=== PATIENT | female | born 1975 | race Caucasian/White ===

== ENCOUNTER → 2017-05-01 | Outpatient (CLI) | payer BC | END | disposition home or self-care (01) | LOC: C.LABBFT 10:11 | PROVIDERS: ATTEND Nurse Practitioner | DX: R53.83 Other fatigue (principal) ==

== ENCOUNTER → 2018-03-04 | Outpatient (CLI) | payer BC | END | disposition home or self-care (01) | LOC: C.PAPS 13:59 | PROVIDERS: ATTEND Nurse Practitioner | DX: Z01.419 Encounter for gynecological examination (general) (routine) without abnormal findings (principal) ==

== ENCOUNTER → 2018-03-05 | Outpatient (CLI) | payer BC ==
[2018-03-05 13:01] LABS: BLOOD UREA NITROGEN 8 mg/dl (7-18); CALCIUM 8.7 mg/dl (8.5-10.1); CARBON DIOXIDE 25 mmol/L (21-32); CHOLESTEROL 129 mg/dl (0-200); CREATININE 0.63 mg/dl (0.60-1.20); GLUCOSE 89 mg/dl (70-99); POTASSIUM 3.8 mmol/L (3.5-5.1); SODIUM 138 mmol/L (136-145)
[2018-03-05 13:04] LABS: LDL CHOLESTEROL CALCULATED 65 mg/dl
== END | disposition home or self-care (01) ==
LOC: C.LABBFT 07:22
PROVIDERS: ATTEND Nurse Practitioner
DX: Z01.419 Encounter for gynecological examination (general) (routine) without abnormal findings (principal)

== ENCOUNTER → 2018-03-12 | Outpatient (CLI) | payer BC ==
--- NOTE | 2018-03-12 07:35 | DIAGNOSTIC IMAGING REPORT ---
THYROID ULTRASOUND HISTORY: R68.89 Throat fullness [id number] COMPARISON: None. FINDINGS: Right lobe: 6.3 x 2.0 x 1.7 cm. A few scattered subcentimeter hypoechoic nodules. The largest in the lower pole measures 9 mm. Left lobe: 5.4 x 2.4 x 1.8 cm. Dominant solid nodule within the lower pole measuring 2.4 x 2.3 x 1.6 cm. There are few additional smaller scattered nodules. Isthmus: 5 mm in thickness. No nodules. IMPRESSION: Multinodular thyroid gland. Dominant nodule within the left lower pole measures 2.4 cm. Ultrasound-guided fine-needle aspiration of this nodule is recommended. Electronically signed by: Booker Healy M.D. 03/12/2018 7:34 AM Dictated Date/Time: 03/12/2018 7:32 AM
== END | disposition home or self-care (01) ==
LOC: C.ULTR 06:32
PROVIDERS: ATTEND Nurse Practitioner
DX: R68.89 Other general symptoms and signs (principal)

== ENCOUNTER → 2018-03-24 | Outpatient (CLI) | payer BC ==
--- NOTE | 2018-03-24 14:13 | DIAGNOSTIC IMAGING REPORT ---
ULTRASOUND-GUIDED FINE-NEEDLE ASPIRATION THYROID CLINICAL HISTORY: 2.4 cm lower pole left thyroid nodule. COMPARISON STUDY: Thyroid ultrasound 03/12/2018. PROCEDURE: The risks, benefits, and alternatives to the procedure were discussed with the patient. Written informed consent was obtained. The patient was placed supine in ultrasound, and the 2.4 cm nodule in the left lobe of the thyroid was localized by ultrasound and selected for fine needle aspiration. The left neck was prepped and draped in the usual sterile fashion. The nodule was aspirated under ultrasound guidance with 4 passes utilizing 25-gauge needles. Specimens were reviewed by the pathologist in real-time and deemed adequate for diagnosis. The patient tolerated the procedure well and left the department in satisfactory condition. IMPRESSION: Completed fine-needle aspiration of a left lower pole thyroid nodule as above. The above report was generated using voice recognition software. It may contain grammatical, syntax or spelling errors. Electronically signed by: Dayne Riley M.D. 03/24/2018 2:12 PM Dictated Date/Time: 03/24/2018 2:10 PM
== END | disposition home or self-care (01) ==
LOC: C.ULTR 12:38
PROVIDERS: ATTEND Nurse Practitioner
DX: E04.2 Nontoxic multinodular goiter (principal)

== ENCOUNTER → 2018-07-04 | Outpatient (CLI) | payer BC | END | disposition home or self-care (01) | LOC: C.RDSM 11:20 | PROVIDERS: ATTEND Orthopaedic Surgery | DX: M25.562 Pain in left knee (principal) ==

== ENCOUNTER 2022-07-08 12:29 | Inpatient (IN) ==
[2022-07-08 13:02] LABS: Hematocrit (blood only) 45.4 % (34.1-44.9); Hemoglobin 15.4 g/dl (12.0-16.0); Mean Corpuscular Hemoglobin 30.3 pg (25.0-34.0); Mean Corpuscular Hgb Conc 33.9 g/dL (32.0-36.0); Mean Corpuscular Volume 89.4 fL (80.0-100.0); Mean Platelet Volume 10.2 fL (9.4-12.3); Platelet Count 253 K/uL (130-400); RDW Coefficient of Variation 13.1 % (11.5-14.5); RDW Standard Deviation 42.9 fL (36.4-46.3); Red Blood Count 5.08 M/uL (3.93-5.22); White Blood Count 17.54 K/ul (4.8-10.8)
[2022-07-08 13:23] LABS: Basophils # (auto) 0.03 K/uL (0-0.2); Basophils % (auto) 0.2 %; Eosinophils # (auto) 0.01 K/uL (0-0.50); Eosinophils % (auto) 0.1 %; Immature Granulocytes # (auto) 0.08 K/uL (0.00-0.02); Immature Granulocytes % (auto) 0.5 %; Lymphocytes # (auto) 0.71 K/uL (1.2-3.4); Monocytes # (auto) 0.73 K/uL (0.24-0.82); Monocytes % (auto) 4.2 %; Neutrophils # (auto) 15.98 K/uL (1.4-6.5)
[2022-07-08 13:25] LABS: Albumin Globulin Ratio 1.3 (0.9-2); Albumin Level 4.3 gm/dl (3.4-5.0); Bilirubin,Total 1.3 mg/dl (0.2-1.0); Calcium 9.7 mg/dl (8.5-10.1); Creatinine Clr Calc Pharmacy 119.7 ml/min; Est GFR (African American) 115.3 ml/min; Est GFR (Non-African American) 99.5 ml/min; Globulin 3.3 gm/dl (2.5-4.0); Potassium 3.6 mmol/L (3.5-5.1); Total Protein 7.6 gm/dl (6.0-8.3)
[2022-07-08] MEDS ORDERED: OPTIRAY 300 100mL IV ONE (13:46)
--- NOTE | 2022-07-08 14:22 | CT Scan Report ---
ABDOMEN AND PELVIS CT WITH IV CONTRAST CT DOSE: 1057.59 mGy.cm HISTORY: right sided abd pain TECHNIQUE: Multiaxial CT images of the abdomen and pelvis were performed following the use of intrave nous contrast. A dose lowering technique was utilized adhering to the principles of ALARA. COMPARISON STUDY: Abdominal ultrasound 02/23/2022. Abdomen and pelvis CT 04/09/2008. FINDINGS: Bibasilar subsegmental atelectasis. No pneumoperitoneum. No pneumatosis no fractures within the visualized osseous structures. The liver, spleen, adrenal glands, pancreas, and kidneys are unre markable. No hydronephrosis. The bladder is unremarkable. The uterus and bilateral adnexa are unremar kable. Trace fluid within the right lower quadrant with inflammatory change within the right lower qu adrant. Fluid-filled large and small bowel is noted. Mild thickening at the terminal ileum. There is inflammatory change surrounding the appendix which is slightly thickened at 8 mm. Trace fluid adjacen t to the appendix. The wall appears to be enhancing. This could represent acute appendicitis with cornell ctive thickening of the cecal base and terminal ileum. A terminal ileitis/ileocolitis with reactive c hange within the appendix could also have a similar appearance. IMPRESSION: 1. Inflammatory change centered within the right lower quadrant with a mild wall thickening of the ap pendix, cecum, and terminal ileum. The appendix measures up to 8 mm in diameter which is considered a bnormal by CT. Therefore, this favors an acute appendicitis with reactive thickening of the cecal bas e and terminal ileum. A terminal ileitis/ileocolitis with reactive change within the appendix could a lso have a similar appearance. 2. Fluid-filled nondilated large and small bowel. This could represent a reactive ileus or gastroente ritis. 3. Prior cholecystectomy. ACT 112: Negative or not required by law. Electronically signed by: Booker Healy M.D. 07/08/2022 2:20 PM
[2022-07-08] MEDS ORDERED: MoRPHine SULFATE 4 MG/ML 1 ML CARP\\VIAL IV STA (14:23)
[2022-07-08] MEDS ORDERED: ONDANSETRON INJ 2 MG/ML 2 ML VIAL IV STA (14:23)
[2022-07-08] MEDS ORDERED: MoRPHine SULFATE 4 MG/ML 1 ML CARP\\VIAL IV PRN ×2 (14:23→18:18)
[2022-07-08] MEDS ORDERED: SODIUM CHLORIDE 0.9% 1000ML 1,000 ML IV ONE (14:23)
[2022-07-08 14:28] LABS: Appearance Urine Clear (Clear); Bacteria Urine Automated Negative (Negative); Bilirubin Urine Negative (Negative); Blood Urine Trace (Negative); Color Urine Yellow; Epithelial Cell Urine Auto 20-30 /lpf (0-5); Glucose Urine UA Negative (Negative); Ketones Urine Negative (Negative); Leukocyte Esterase Urine Negative (Negative); Nitrite Urine Negative (Negative); Protein Urine Trace (Negative); RBC Urine Automated 0-4 /hpf (0-4); Specific Gravity Urine 1.016 (1.000-1.030); Urobilinogen Urine Negative (Negative); pH Urine 6.5 (4.5-7.5)
--- NOTE | 2022-07-08 14:33 | Emergency Department Note ---
Impression & Plan Acute appendicitis, Right lower quadrant abdominal pain ED Provider Note NAME: MAXWELL DIAZ AGE: 46 SEX: F : 1975 ARRIVES VIA: Walk-In INFORMANT: Patient, ED PROVIDER(S): Anupam Reyes DO CHIEF COMPLAINT: Abdominal pain HPI: The patient is a 46-year-old female who presented to the emergency department for an evaluation of abdominal pain. The patient started noticing lower abdominal pain over the course the last few days. She states that the pain was associated with nausea as well as vomiting. She has had some loose bowel movements. She denies having any black or bloody bowels. She has had no similar symptoms in the past. She states that she has had a difficult time trying to eat or drink because of the pain. She states the pain is worsened with ambulation as well as palpation of the lower abdomen. The patient states that her pain is moderate to severe. She was not able to see a provider prior t o coming to the emergency department. The patient states she tried taking [id number] medication without relief. ROS: See above HPI for pertinent positives & negatives. A total of 10 systems reviewed and were otherwise negative. PAST MEDICAL HISTORY: See Below PAST SURGICAL HISTORY: See Below FAMILY HISTORY: See Below SOCIAL HISTORY: See Below HOME MEDICATIONS: See Below ALLERGIES: See Below VITALS: See Below PHYSICAL EXAMINATION: GENERAL: The patient is awake and alert. The patient is very anxious appearing and appears to be uncomfortable. EYES: The conjunctivae are clear. The pupils are round and reactive. EARS, NOSE, MOUTH AND THROAT: The nose is without any evidence of any deformity. NECK: The neck is nontender and supple. RESPIRATORY: Normal respiratory effort is noted there is no evidence of wheezing rhonchi or rales CARDIOVASCULAR: Regular rate and rhythm noted there no murmurs rubs or gallops normal S1 normal S2. GASTROINTESTINAL: The abdomen is soft and mildly distended. There is guarding in the right middle quadrant. MUSCULOSKELETAL/EXTREMITIES: There is no evidence of gross deformity full range of motion is noted in the hips and shoulders. SKIN: There is no obvious evidence of any rash. There are no petechiae, pallor or cyanosis noted. NEUROLOGIC: Patient is awake alert and oriented x3. Gait was steady. MEDICAL DECISION MAKING: Patient is a 46-year-old female who presented to the emergency department for an evaluation of lower abdominal pain. The patient was treated with IV fluids and IV pain medication in the emergency department. She was also ordered IV Zosyn. I discussed the patient's laboratory and radiographic studies with her. She was found to have signs of appendicitis on CT but this could also be a terminal ileitis or some other involvement of the proximal large bowel. This appears to involve her cecum as well. Because of her findings I discussed her condition with the on-call general surgeon. They reviewed her radiographic studies and after evaluating the patient feels she may be a better candidate for IV antibiotics at this time until her condition starts to become more clear. She does not appear to have any signs of perforation. The patient did have an elevated white blood cell count. I do agree with this plan at this time and the patient was agreeable as well. Triage Nursing notes reviewed. Prior medical records reviewed Vital Signs: reviewed and remarkable for no significant abnormalities Differential diagnosis: Etiologies such as appendicitis, diverticulitis, obstruction, inflammatory bowel disease, renal colic, PUD, biliary pathology, pancreatitis, mesenteric ischemia, aortic pathology, infections, genitourinary, UTI, perforated viscus, as well as others were entertained. ER treatment provided: See below Diagnostics interpreted by me: ECG: none Cardiac Monitoring: An order was placed for continuous cardiac monitoring. The monitor shows a rate of 95 bpm with sinus rhythm. Laboratory studies: As stated above and show below. Imaging studies: See below Consultation(s): I discussed this case with Dr. Grace who is on-call for general surgery. Past Med/Surg History Medical History Amenorrhea Depression HX GERD (gastroesophageal reflux disease) UNDER CONTROL Migraines Obesity Palpitations ON OCC-NO CARDIOLOGY Thyroid nodule UNDER OBSERVATION/HAS HAD BIOPSY-BENIGN Per 03/02/21 thyroid u/s- no significant change in several of the thyroid nodules since 2018 Tobacco abuse Quit April 2017, but has an occasional cigarette Surgical History History of esophagogastroduodenoscopy (EGD) History of oophorectomy 2007 for complex cyst History of surgery on lower extremity S/P FOREIGN BODY REMOVAL Hx laparoscopic cholecystectomy (03/28/22) Robotic Laparoscopic Cholecystectomy (Not Applicable) - Da Munoz DO, FACS Family History Family/Other Diabetes PATERNAL GRANDFATHER Dementia Grandfather (Maternal) Dementia Migraine headache Parkinsons disease Father Heart murmur Mother Migraine headache Grandmother (Maternal) Ovarian cancer Other Myocardial infarction Denies family history of Breast cancer Colorectal cancer Social History Smoking Status: Current every day smoker Tobacco Type: Cigarettes Age Started Using Tobacco: 19; Years Smoked: 20; Cigarettes Per Day: LESS THAN 3 A DAY; Second Hand Exposure: No; Hx Alcohol Use: No Hx Substance Use: No Preferred Language: Frisian Communication Ability: Effective Visual Impairment: No Limitations Hearing Ability: Normal Acoustic Warfare Analyst Required: No Beliefs That Will Affect Care: None marital status: single Current Living Situation: Alone current occupational status: employed current occupation: [employer] How many Children do You have: 0 Feels Safe at Home: Yes Childhood Exposure to Second-Hand Smoke: No caffeine: Yes during the past year weight has: decreased > 10 lbs Dental Care, Regularly: Yes Physical Activity Frequency: 1-2 Times per Week Seatbelt Use: always Sunscreen Use: Yes Assistive Devices: Glasses Allergies Allergies Allergy/AdvReac Type Severity Reaction Status Date / Time No Known Drug Allergies Allergy Unknown Verified 07/08/22 16:44 SEASONAL Allergy ITCHY, DRY Uncoded 07/08/22 16:54 & RED EYES Home Meds Home Medications Medication Instructions Recorded Confirmed magnesium 200 mg tablet 200 mg PO QAM 01/26/20 07/08/22 omeprazole magnesium 20 mg 20 mg PO QAM 01/26/20 07/08/22 tablet,delayed release loratadine 10 mg tablet 10 mg PO QAM 02/28/21 07/08/22 psyllium husk 0.52 gram capsule 1.04 g PO QAM 03/01/22 07/08/22 Collagen Powder 1 dose PO DAILY 07/08/22 07/08/22 acetaminophen 500 mg tablet 1,000 mg PO Q6H PRN Pain 07/08/22 07/08/22 (Tylenol Extra Strength) glucosamine sulf dipot 2 cap PO DAILY 07/08/22 07/08/22 chlr,msm,chond 550 mg-C 30 mg-chirag 1 mg capsule (Glucosamine Chondroitin) Previous Rx's Medication Instructions Recorded rizatriptan 10 mg disintegrating See Rx Instructions PO .COMPLEX #9 03/01/22 tablet tabs Results & Data (ED) Vital Signs Vital Signs - 24 hr 07/08/22 12:34 07/08/22 15:28 07/08/22 15:34 Temperature 36.5 C Temperature Source Temporal Artery Scan Pulse Rate 104 H 96 H Pulse Rate [Apical] 99 H Pulse Rate from SpO2 Sensor 97 H Respiratory Rate 20 16 22 Respiratory Effort / Characteristics Non-Labored Respiratory Depth Normal Blood Pressure 149/95 H Blood Pressure [Left Arm] 134/80 Blood Pressure Mean 113 Blood Pressure Mean [Left Arm] 98 Pulse Oximetry 98 96 96 Oxygen Delivery Method Room Air Room Air Sepsis Recent Fever Within 48 Hours No Sepsis New/Unexplained Change in Mental Status N/A Sepsis Action Taken by Nursing No Action Required Home Medications Current Medication List: was personally reviewed by me Laboratory Data Attestation: I reviewed the patient's lab results. Result diagrams: 07/08/22 10:25 07/08/22 10:25 Lab Results 07/08/22 07/08/22 07/08/22 Range/Units 10:25 10:25 14:00 WBC 17.54 H (4.8-10.8) K/ul RBC 5.08 (3.93-5.22) M/uL Hgb 15.4 (12.0-16.0) g/dl Hct 45.4 H (34.1-44.9) % MCV 89.4 (80.0-100.0) fL MCH 30.3 (25.0-34.0) pg MCHC 33.9 (32.0-36.0) g/dL RDW Std Deviation 42.9 (36.4-46.3) fL RDW Coeff of Amy 13.1 (11.5-14.5) % Plt Count 253 (130-400) K/uL MPV 10.2 (9.4-12.3) fL Immature Gran % (Auto) 0.5 % Neut % (Auto) 91.0 % Lymph % (Auto) 4.0 % Stanton % (Auto) 4.2 % Eos % (Auto) 0.1 % Baso % (Auto) 0.2 % Neut # (Auto) 15.98 H (1.4-6.5) K/uL Lymph # (Auto) 0.71 L (1.2-3.4) K/uL Stanton # (Auto) 0.73 (0.24-0.82) K/uL Eos # (Auto) 0.01 (0-0.50) K/uL Baso # (Auto) 0.03 (0-0.2) K/uL Immature Gran # (Auto) 0.08 H (0.00-0.02) K/uL Sodium 133 L (136-145) mmol/L Potassium 3.6 (3.5-5.1) mmol/L Chloride 98 (98-107) mmol/L Carbon Dioxide 26 (21-32) mmol/L Anion Gap 9 (3-11) BUN 8 (6-23) mg/dl Creatinine 0.73 (0.6-1.2) mg/dl Est Cr Clr Drug Dosing 119.7 ml/min Est GFR ( Amer) 115.3 ml/min Est GFR (Non-Af Amer) 99.5 ml/min BUN/Creatinine Ratio 11.0 (10-20) Glucose 121 H (70-99(Fasting)) mg/dl Calcium 9.7 (8.5-10.1) mg/dl Total Bilirubin 1.3 H (0.2-1.0) mg/dl AST 9 L (13-39) U/L ALT 9 (7-52) U/L Alkaline Phosphatase 79 (34-104) U/L Total Protein 7.6 (6.0-8.3) gm/dl Albumin 4.3 (3.4-5.0) gm/dl Globulin 3.3 (2.5-4.0) gm/dl Albumin/Globulin Ratio 1.3 (0.9-2) Lipase 8 L (11-82) U/L HCG, Qual (Negative) Urine Color Yellow Urine Appearance Clear (Clear) Urine pH 6.5 (4.5-7.5) Ur Specific [place] 1.016 (1.000-1.030) Urine Protein Trace H (Negative) Urine Glucose (UA) Negative (Negative) Urine Ketones Negative (Negative) Urine Blood Trace H (Negative) Urine Nitrite Negative (Negative) Urine Bilirubin Negative (Negative) Urine Urobilinogen Negative (Negative) Ur Leukocyte Esterase Negative (Negative) Urine WBC (Auto) 1-5 (0-5) /hpf Urine RBC (Auto) 0-4 (0-4) /hpf U Hyaline Cast (Auto) 1-5 (0-5) /lpf U Epithel Cells (Auto) 20-30 H (0-5) /lpf Urine Bacteria (Auto) Negative (Negative) 07/08/22 Range/Units 14:53 WBC (4.8-10.8) K/ul RBC (3.93-5.22) M/uL Hgb (12.0-16.0) g/dl Hct (34.1-44.9) % MCV (80.0-100.0) fL MCH (25.0-34.0) pg MCHC (32.0-36.0) g/dL RDW Std Deviation (36.4-46.3) fL RDW Coeff of Amy (11.5-14.5) % Plt Count (130-400) K/uL MPV (9.4-12.3) fL Immature Gran % (Auto) % Neut % (Auto) % Lymph % (Auto) % Stanton % (Auto) % Eos % (Auto) % Baso % (Auto) % Neut # (Auto) (1.4-6.5) K/uL Lymph # (Auto) (1.2-3.4) K/uL Stanton # (Auto) (0.24-0.82) K/uL Eos # (Auto) (0-0.50) K/uL Baso # (Auto) (0-0.2) K/uL Immature Gran # (Auto) (0.00-0.02) K/uL Sodium (136-145) mmol/L Potassium (3.5-5.1) mmol/L Chloride (98-107) mmol/L Carbon Dioxide (21-32) mmol/L Anion Gap (3-11) BUN (6-23) mg/dl Creatinine (0.6-1.2) mg/dl Est Cr Clr Drug Dosing ml/min Est GFR ( Amer) ml/min Est GFR (Non-Af Amer) ml/min BUN/Creatinine Ratio (10-20) Glucose (70-99(Fasting)) mg/dl Calcium (8.5-10.1) mg/dl Total Bilirubin (0.2-1.0) mg/dl AST (13-39) U/L ALT (7-52) U/L Alkaline Phosphatase (34-104) U/L Total Protein (6.0-8.3) gm/dl Albumin (3.4-5.0) gm/dl Globulin (2.5-4.0) gm/dl Albumin/Globulin Ratio (0.9-2) Lipase (11-82) U/L HCG, Qual Negative (Negative) Urine Color Urine Appearance (Clear) Urine pH (4.5-7.5) Ur Specific [place] (1.000-1.030) Urine Protein (Negative) Urine Glucose (UA) (Negative) Urine Ketones (Negative) Urine Blood (Negative) Urine Nitrite (Negative) Urine Bilirubin (Negative) Urine Urobilinogen (Negative) Ur Leukocyte Esterase (Negative) Urine WBC (Auto) (0-5) /hpf Urine RBC (Auto) (0-4) /hpf U Hyaline Cast (Auto) (0-5) /lpf U Epithel Cells (Auto) (0-5) /lpf Urine Bacteria (Auto) (Negative) Administered Medications Piperacillin Sod/Tazobactam (Sod 4.5 gm/ Dextrose) 120 mls @ 28.75 mls/hr IV Q8H [facility]; Protocol Stop: 07/18/22 19:59 Last Admin: 07/08/22 19:35 Dose: 28.8 mls/hr Documented By: ERLIN Discontinued Medications Sodium Chloride (Nss 1000ml) 1,000 mls @ 999 mls/hr IV .Q1H1M ONE Stop: 07/08/22 15:23 Last Infusion: 07/08/22 16:24 Dose: 0 mls/hr Documented By: Admin: 07/08/22 15:23 Dose: 999 mls/hr Documented By: REYNA Piperacillin Sod/Tazobactam Sod (Zosyn) 4.5 gm in 120 mls @ 240 mls/hr IV NOW ONE Stop: 07/08/22 16:23 Last Infusion: 07/08/22 16:47 Dose: 0 mls/hr Documented By: Admin: 07/08/22 16:17 Dose: 240 mls/hr Documented By: REYNA Ioversol (Optiray 300 100ml) 94 ml IV ONCE ONE Stop: 07/08/22 13:47 Last Admin: 07/08/22 13:46 Dose: 94 ml Documented By: JANNA Morphine Sulfate (Morphine Sulfate 4 Mg/Ml 1 Ml Carp\Vial) 4 mg IV NOW STA Stop: 07/08/22 14:24 Last Admin: 07/08/22 19:31 Dose: 4 mg Documented By: ERLIN Ondansetron HCl (Ondansetron Inj 2 Mg/Ml 2 Ml Vial) 4 mg IV NOW STA Stop: 07/08/22 14:24 Last Admin: 07/08/22 19:29 Dose: 4 mg Documented By: ERLIN Imaging Data Radiologist's Impression: Abdomen/Pelvis CT 07/08/22 13:[address] WITH IV CONTRAST CT DOSE: 1057.59 mGy.cm HISTORY: right sided abd pain TECHNIQUE: Multiaxial CT images of the abdomen and pelvis were performed following the use of intravenous contrast. A dose lowering technique was utilized adhering to the principles of ALARA. COMPARISON STUDY: Abdominal ultrasound 02/23/2022. Abdomen and pelvis CT 04/09/2008. FINDINGS: Bibasilar subsegmental atelectasis. No pneumoperitoneum. No pneumatosis no fractures within the visualized osseous structures. The liver, spleen, adrenal glands, pancreas, and kidneys are unremarkable. No hydronephrosis. The bladder is unremarkable. The uterus and bilateral adnexa are unremarkable. Trace fluid within the right lower quadrant with inflammatory change within the right lower quadrant. Fluid-filled large and small bowel is noted. Mild thickening at the terminal ileum. There is inflammatory change surrounding the appendix which is slightly thickened at 8 mm. Trace fluid adjacent to the appendix. The wall appears to be enhancing. This could represent acute appendicitis with reactive thickening of the cecal base and terminal ileum. A terminal ileitis/ileocolitis with reactive change within the appendix could also have a similar appearance. IMPRESSION: 1. Inflammatory change centered within the right lower quadrant with a mild wall thickening of the appendix, cecum, and terminal ileum. The appendix measures up to 8 mm in diameter which is considered abnormal by CT. Therefore, this favors an acute appendicitis with reactive thickening of the cecal base and terminal ileum. A terminal ileitis/ileocolitis with reactive change within the appendix could also have a similar appearance. 2. Fluid-filled nondilated large and small bowel. This could represent a reactive ileus or gastroenteritis. 3. Prior cholecystectomy. ACT 112: Negative or not required by law. Electronically signed by: Booker Healy M.D. 07/08/2022 2:20 PM Discharge Plan Visit Data Chief Complaint: Abdominal Pain Stated Complaint: ABDOMINAL PAIN ED Provider: Anupam Reyes Discharge Problem: Acute appendicitis, Right lower quadrant abdominal pain Patient Disposition: Admitted As Inpatient Discharge Instructions Interventions: ED Discharge Assessment Last Done: 07/08/22 19:00 : Acute appendicitis Qualifiers: Acute appendicitis type: with localized peritonitis Appendicitis gangrene presence: without gangrene Appendicitis perforation presence: without perforation Appendicitis abscess presence: without abscess Qualified Code(s): K35.30 - Acute appendicitis with localized peritonitis, without perforation or gangrene
[2022-07-08 15:39] LABS: Pregnancy Test, Serum Negative (Negative)
--- NOTE | 2022-07-08 15:42 | History & Physical Report ---
Date of Service July 08, 2022 Assessment & Plan (1) Right lower quadrant abdominal pain: Plan: Imaging was personally reviewed with the patient. There are significant inflammatory changes involving the terminal ileum, appendix, and base of cecum. It is unclear if this is appendicitis extending to these areas or if this is ileitis extending to involve the appendix. There is no evidence for perforation. Given the phlegmonous changes on CT scan, I am worried that she will not be a simple appendectomy. It is far more likely that she would require an ileocecectomy at this point. There is no evidence for an appendicolith on CT scan. We discussed that there is data showing the treatment of both ileitis as well as appendicitis with antibiotics can be successful. Thus, I would like to admit her for bowel rest and IV antibiotics. If her symptoms do not improve, she may still require surgery which may either be an appendectomy or an ileocecectomy. We did discuss the difference between both procedures as well as the difference in recovery if the procedure can be done laparoscopically versus an open procedure. Currently, all of her questions were answered. She is in agreement with this plan. (2) Ileitis, terminal: Plan: see above. Discussed that if this is ileitis, she will need a GI eval to rule out Crohn's disease as an outpatient. History of Present Illness Chief Complaint: abdominal pain Primary Care Provider: SAMY Pacheco 46-year-old woman who presents to the emergency room complaining of 3 to 4 days of abdominal pain. This began as generalized abdominal pain in the mid abdomen. It subsequently migrated to the right lower quadrant. Yesterday it was associated with nausea and vomiting. It was a moderate to severe intensity. It comes and goes in waves. It does not radiate. She notes chills but did not take her temperature. The pain is worse with movement. She has noted decreased appetite. No relieving factors. She did have a similar episode back in February where she also had periumbilical pain that migrated to the right mid to lower abdomen. At that time she was diagnosed with gallbladder disease and underwent a laparoscopic cholecystectomy. Allergies Allergy/AdvReac Type Severity Reaction Status Date / Time No Known Drug Allergies Allergy Verified 04/13/22 09:25 Home Medications Medication Instructions Recorded Confirmed Type glucosamine HCl 500 mg tablet 500 mg PO QAM 01/26/20 03/28/22 History magnesium 200 mg tablet 200 mg PO QAM 01/26/20 03/28/22 History omeprazole magnesium 20 mg 20 mg PO QAM 01/26/20 03/28/22 History tablet,delayed release loratadine 10 mg tablet 10 mg PO QAM 02/28/21 03/28/22 History ondansetron 4 mg disintegrating 4 mg PO Q8H PRN nausea and 02/23/22 03/28/22 Rx tablet vomiting #30 tabs psyllium husk 0.52 gram capsule 0.52 g PO QAM 03/01/22 03/28/22 History rizatriptan 10 mg disintegrating See Rx Instructions PO .COMPLEX #9 03/01/22 03/28/22 Rx tablet tabs oxycodone-acetaminophen 5 mg-325 1 - 2 tab PO Q4H PRN pain, initial 03/28/22 Rx mg tablet (Percocet) therapy, max 6 daily #15 tabs Past Med/Surg History Medical History Amenorrhea Depression HX GERD (gastroesophageal reflux disease) UNDER CONTROL Migraines Obesity Palpitations ON OCC-NO CARDIOLOGY Thyroid nodule UNDER OBSERVATION/HAS HAD BIOPSY-BENIGN Per 03/02/21 thyroid u/s- no significant change in several of the thyroid nodules since 2018 Tobacco abuse Quit April 2017, but has an occasional cigarette Surgical History History of esophagogastroduodenoscopy (EGD) History of oophorectomy 2007 for complex cyst History of surgery on lower extremity S/P FOREIGN BODY REMOVAL Hx laparoscopic cholecystectomy (03/28/22) Robotic Laparoscopic Cholecystectomy (Not Applicable) - Da Mnuoz DO, FACS Family History Family/Other Diabetes PATERNAL GRANDFATHER Dementia Grandfather (Maternal) Dementia Migraine headache Parkinsons disease Father Heart murmur Mother Migraine headache Grandmother (Maternal) Ovarian cancer Other Myocardial infarction Denies family history of Breast cancer Colorectal cancer Social History Smoking Status: Current every day smoker Tobacco Type: Cigarettes Age Started Using Tobacco: 19; Years Smoked: 20; Cigarettes Per Day: LESS THAN 3 A DAY; Second Hand Exposure: No; Hx Alcohol Use: No Hx Substance Use: No Preferred Language: Italian Communication Ability: Effective Visual Impairment: No Limitations Hearing Ability: Normal Front Desk Receptionist Required: No Beliefs That Will Affect Care: None marital status: single Current Living Situation: Alone current occupational status: employed current occupation: [employer] How many Children do You have: 0 Feels Safe at Home: Yes Childhood Exposure to Second-Hand Smoke: No caffeine: Yes during the past year weight has: decreased > 10 lbs Dental Care, Regularly: Yes Physical Activity Frequency: 1-2 Times per Week Seatbelt Use: always Sunscreen Use: Yes Assistive Devices: Glasses Review of Systems Review of Systems: All systems reviewed & are unremarkable except as noted in HPI & below Physical Exam Constitutional: WD/WN, vitals as above Eyes: PERRL, conjunctivae normal, anicteric sclerae ENMT: Ears: no external ear abnormality Neck: normal visual inspection and trachea midline Respiratory: normal respiratory effort, lungs clear to auscultation Cardiovascular: RRR, no murmur, no edema Gastrointestinal (Abdomen): Inspection/Auscultation: abdomen normal to inspection and normal bowel sounds; abdomen not distended Percussion/Palpation: + abdomen tender (mid and right lower abdomen) and abdomen soft; no guarding and no hernia Musculoskeletal: Extremities: extremities normal to inspection Neurologic: awake; no focal motor deficits Psychiatric: A+Ox3, euthymic affect Results & Data Results & Data ([facility]) Vital Signs (Past 12 Hours) Vital Signs Temp Pulse Pulse Resp BP BP Pulse Ox 07/08/22 15:28 99 H 16 134/80 96 07/08/22 12:34 36.5 C 104 H 20 149/95 H 98 O2 Del Method 07/08/22 15:28 Room Air 07/08/22 12:34 Room Air Laboratory Results 07/08/22 07/08/22 07/08/22 Range/Units 14:53 14:00 10:25 WBC (4.8-10.8) K/ul RBC (3.93-5.22) M/uL Hgb (12.0-16.0) g/dl Hct (34.1-44.9) % MCV (80.0-100.0) fL MCH (25.0-34.0) pg MCHC (32.0-36.0) g/dL RDW Std Deviation (36.4-46.3) fL RDW Coeff of Amy (11.5-14.5) % Plt Count (130-400) K/uL MPV (9.4-12.3) fL Immature Gran % (Auto) % Neut % (Auto) % Lymph % (Auto) % [place] % (Auto) % Eos % (Auto) % Baso % (Auto) % Neut # (Auto) (1.4-6.5) K/uL Lymph # (Auto) (1.2-3.4) K/uL [place] # (Auto) (0.24-0.82) K/uL Eos # (Auto) (0-0.50) K/uL Baso # (Auto) (0-0.2) K/uL Immature Gran # (Auto) (0.00-0.02) K/uL Sodium 133 L (136-145) mmol/L Potassium 3.6 (3.5-5.1) mmol/L Chloride 98 (98-107) mmol/L Carbon Dioxide 26 (21-32) mmol/L Anion Gap 9 (3-11) BUN 8 (6-23) mg/dl Creatinine 0.73 (0.6-1.2) mg/dl Est Cr Clr Drug Dosing 119.7 ml/min Est GFR ( Amer) 115.3 ml/min Est GFR (Non-Af Amer) 99.5 ml/min BUN/Creatinine Ratio 11.0 (10-20) Glucose 121 H (70-99(Fasting)) mg/dl Calcium 9.7 (8.5-10.1) mg/dl Total Bilirubin 1.3 H (0.2-1.0) mg/dl AST 9 L (13-39) U/L ALT 9 (7-52) U/L Alkaline Phosphatase 79 (34-104) U/L Total Protein 7.6 (6.0-8.3) gm/dl Albumin 4.3 (3.4-5.0) gm/dl Globulin 3.3 (2.5-4.0) gm/dl Albumin/Globulin Ratio 1.3 (0.9-2) Lipase 8 L (11-82) U/L HCG, Qual Negative (Negative) Urine Color Yellow Urine Appearance Clear (Clear) Urine pH 6.5 (4.5-7.5) Ur Specific [place] 1.016 (1.000-1.030) Urine Protein Trace H (Negative) Urine Glucose (UA) Negative (Negative) Urine Ketones Negative (Negative) Urine Blood Trace H (Negative) Urine Nitrite Negative (Negative) Urine Bilirubin Negative (Negative) Urine Urobilinogen Negative (Negative) Ur Leukocyte Esterase Negative (Negative) Urine WBC (Auto) 1-5 (0-5) /hpf Urine RBC (Auto) 0-4 (0-4) /hpf U Hyaline Cast (Auto) 1-5 (0-5) /lpf U Epithel Cells (Auto) 20-30 H (0-5) /lpf Urine Bacteria (Auto) Negative (Negative) 07/08/22 Range/Units 10:25 WBC 17.54 H (4.8-10.8) K/ul RBC 5.08 (3.93-5.22) M/uL Hgb 15.4 (12.0-16.0) g/dl Hct 45.4 H (34.1-44.9) % MCV 89.4 (80.0-100.0) fL MCH 30.3 (25.0-34.0) pg MCHC 33.9 (32.0-36.0) g/dL RDW Std Deviation 42.9 (36.4-46.3) fL RDW Coeff of Amy 13.1 (11.5-14.5) % Plt Count 253 (130-400) K/uL MPV 10.2 (9.4-12.3) fL Immature Gran % (Auto) 0.5 % Neut % (Auto) 91.0 % Lymph % (Auto) 4.0 % [place] % (Auto) 4.2 % Eos % (Auto) 0.1 % Baso % (Auto) 0.2 % Neut # (Auto) 15.98 H (1.4-6.5) K/uL Lymph # (Auto) 0.71 L (1.2-3.4) K/uL [place] # (Auto) 0.73 (0.24-0.82) K/uL Eos # (Auto) 0.01 (0-0.50) K/uL Baso # (Auto) 0.03 (0-0.2) K/uL Immature Gran # (Auto) 0.08 H (0.00-0.02) K/uL Sodium (136-145) mmol/L Potassium (3.5-5.1) mmol/L Chloride (98-107) mmol/L Carbon Dioxide (21-32) mmol/L Anion Gap (3-11) BUN (6-23) mg/dl Creatinine (0.6-1.2) mg/dl Est Cr Clr Drug Dosing ml/min Est GFR ( Amer) ml/min Est GFR (Non-Af Amer) ml/min BUN/Creatinine Ratio (10-20) Glucose (70-99(Fasting)) mg/dl Calcium (8.5-10.1) mg/dl Total Bilirubin (0.2-1.0) mg/dl AST (13-39) U/L ALT (7-52) U/L Alkaline Phosphatase (34-104) U/L Total Protein (6.0-8.3) gm/dl Albumin (3.4-5.0) gm/dl Globulin (2.5-4.0) gm/dl Albumin/Globulin Ratio (0.9-2) Lipase (11-82) U/L HCG, Qual (Negative) Urine Color Urine Appearance (Clear) Urine pH (4.5-7.5) Ur Specific [place] (1.000-1.030) Urine Protein (Negative) Urine Glucose (UA) (Negative) Urine Ketones (Negative) Urine Blood (Negative) Urine Nitrite (Negative) Urine Bilirubin (Negative) Urine Urobilinogen (Negative) Ur Leukocyte Esterase (Negative) Urine WBC (Auto) (0-5) /hpf Urine RBC (Auto) (0-4) /hpf U Hyaline Cast (Auto) (0-5) /lpf U Epithel Cells (Auto) (0-5) /lpf Urine Bacteria (Auto) (Negative) Diagnostic Findings CT scan ABDOMEN AND PELVIS CT WITH IV CONTRAST CT DOSE: 1057.59 mGy.cm HISTORY: right sided abd pain TECHNIQUE: Multiaxial CT images of the abdomen and pelvis were performed following the use of intravenous contrast. A dose lowering technique was utilized adhering to the principles of ALARA. COMPARISON STUDY: Abdominal ultrasound 02/23/2022. Abdomen and pelvis CT 04/09/2008. FINDINGS: Bibasilar subsegmental atelectasis. No pneumoperitoneum. No pneumatosis no fractures within the visualized osseous structures. The liver, spleen, adrenal glands, pancreas, and kidneys are unremarkable. No hydronephrosis. The bladder is unremarkable. The uterus and bilateral adnexa are unremarkable. Trace fluid within the right lower quadrant with inflammatory change within the right lower quadrant. Fluid-filled large and small bowel is noted. Mild thickening at the terminal ileum. There is inflammatory change surrounding the appendix which is slightly thickened at 8 mm. Trace fluid adjacent to the appendix. The wall appears to be enhancing. This could represent acute appendicitis with reactive thickening of the cecal base and terminal ileum. A terminal ileitis/ileocolitis with reactive change within the appendix could also have a similar appearance. IMPRESSION: 1. Inflammatory change centered within the right lower quadrant with a mild wall thickening of the appendix, cecum, and terminal ileum. The appendix measures up to 8 mm in diameter which is considered abnormal by CT. Therefore, this favors an acute appendicitis with reactive thickening of the cecal base and terminal ileum. A terminal ileitis/ileocolitis with reactive change within the appendix could also have a similar appearance. 2. Fluid-filled nondilated large and small bowel. This could represent a reactive ileus or gastroenteritis. 3. Prior cholecystectomy. ACT 112: Negative or not required by law.
[2022-07-08] MEDS ORDERED: PIPERACILLIN/TAZOBACTAM 4.5 GM/120 ML BAG IV ONE (15:54)
[2022-07-08] MEDS ORDERED: ONDANSETRON INJ 2 MG/ML 2 ML VIAL IV PRN (18:18)
[2022-07-08] MEDS ORDERED: MoRPHine SULFATE 2 MG/ML CARP IV PRN (18:18)
[2022-07-08] MEDS: PIPERACILLIN/TAZOBACTAM 4.5 GM in DEXTROSE 5% 100 ML IV SCH (19:35)
[2022-07-08] MEDS: LACTATED RINGER'S 1,000 ML IV SCH (23:57)
[2022-07-09] MEDS: PIPERACILLIN/TAZOBACTAM 4.5 GM in DEXTROSE 5% 100 ML IV SCH ×3 (04:27→20:23)
[2022-07-09] MEDS: LACTATED RINGER'S 1,000 ML IV SCH ×3 (08:42→20:22)
[2022-07-09] MEDS: PANTOprazole 40 MG in SYRINGE 0 ML IV SCH (10:18)
[2022-07-09 10:23] LABS: Basophils # (auto) 0.03 K/uL (0-0.2); Basophils % (auto) 0.2 %; Eosinophils # (auto) 0.06 K/uL (0-0.50); Eosinophils % (auto) 0.4 %; Hematocrit (blood only) 39.6 % (34.1-44.9); Hemoglobin 13.5 g/dl (12.0-16.0); Immature Granulocytes # (auto) 0.07 K/uL (0.00-0.02); Immature Granulocytes % (auto) 0.5 %; Lymphocytes % (auto) 6.5 %; Mean Corpuscular Hemoglobin 30.1 pg (25.0-34.0); Mean Corpuscular Hgb Conc 34.1 g/dL (32.0-36.0); Mean Corpuscular Volume 88.4 fL (80.0-100.0); Mean Platelet Volume 10.5 fL (9.4-12.3); Monocytes # (auto) 0.77 K/uL (0.24-0.82); Monocytes % (auto) 5.5 %; Neutrophils # (auto) 12.08 K/uL (1.4-6.5); Neutrophils % (auto) 86.9 %; Platelet Count 224 K/uL (130-400); RDW Coefficient of Variation 13.2 % (11.5-14.5); RDW Standard Deviation 43.3 fL (36.4-46.3); Red Blood Count 4.48 M/uL (3.93-5.22); White Blood Count 13.91 K/ul (4.8-10.8)
[2022-07-09 10:57] LABS: BUN Creatinine Ratio 10.3 (10-20); Calcium 8.9 mg/dl (8.5-10.1); Creatinine Clr Calc Pharmacy 149.9 ml/min; Est GFR (Non-African American) 111.3 ml/min; Potassium 3.6 mmol/L (3.5-5.1)
[2022-07-09] MEDS ORDERED: ACETAMINOPHEN 325 MG TAB PO PRN (15:52)
[2022-07-09] MEDS ORDERED: KETOROLAC TROMETHAMINE 15 MG/ML VIAL IV PRN (15:52)
[2022-07-09] MEDS ORDERED: oxyCODONE/ACETAMINOPHEN 5mg/325mg TAB PO PRN (15:52)
--- NOTE | 2022-07-09 15:58 | Surgery Progress Note ---
Date of Service July 09, 2022 Assessment & Plan (1) Right lower quadrant abdominal pain: Plan: There are significant inflammatory changes involving the terminal ileum, appendix, and base of cecum. It is unclear if this is appendicitis extending to these areas or if this is ileitis extending to involve the appendix. There is no evidence for perforation. -afebrile, vss - improvement of leukocytosis to 13k (17k yesterday) - pain stable - no n,v Plan: continue conservative measures with IV antibiotics continue pain management will add po tylenol, po percocet, IV Toradol prn pain since she did not like how Morphine made her feel Encourage ambulation SCDs for DVT prophylaxis repeat am labs (2) Ileitis, terminal: Plan: Wll need GI evaluation for outpatient follow-up and colonoscopy Dr. Singh has seen and examined pt, agrees with above. Admission and Anticipated Discharge Date Admission Date: July 08, 2022 Subjective feeling better today, pain is not as frequent no nausea or vomiting no fevers or chills feeling kind of weak urinating without difficulty but urine looks dark orange Physical Exam Constitutional: WD/WN, vitals as above no acute distress and not ill zhen earing Neck: normal visual inspection and trachea midline Respiratory: normal respiratory effort; no respiratory distress Gastrointestinal (Abdomen): Inspection/Auscultation: abdomen normal to inspection and + hypoactive bowel sounds; abdomen not distended Percussion/Palpation: + abdomen tender (Right lower quadrant on mild palpation) and abdomen soft; no guarding and abdomen not rigid Skin: no rashes, warm and dry Psychiatric: A+Ox3, euthymic affect Results & Data ([facility]) Vital Signs (Past 12 Hours) Vital Signs Temp Pulse Resp BP Pulse Ox O2 Del Method O2 Flow Rate 07/09/22 15:05 36.6 C 93 H 16 119/78 93 Room Air 07/09/22 07:11 37.3 C 87 16 138/81 93 Nasal Cannula 2 Laboratory Results 07/09/22 07/09/22 07/08/22 Range/Units 09:46 09:46 17:35 WBC 13.91 H (4.8-10.8) K/ul RBC 4.48 (3.93-5.22) M/uL Hgb 13.5 (12.0-16.0) g/dl Hct 39.6 (34.1-44.9) % MCV 88.4 (80.0-100.0) fL MCH 30.1 (25.0-34.0) pg MCHC 34.1 (32.0-36.0) g/dL RDW Std Deviation 43.3 (36.4-46.3) fL RDW Coeff of Amy 13.2 (11.5-14.5) % Plt Count 224 (130-400) K/uL MPV 10.5 (9.4-12.3) fL Immature Gran % (Auto) 0.5 % Neut % (Auto) 86.9 % Lymph % (Auto) 6.5 % [place] % (Auto) 5.5 % Eos % (Auto) 0.4 % Baso % (Auto) 0.2 % Neut # (Auto) 12.08 H (1.4-6.5) K/uL Lymph # (Auto) 0.90 L (1.2-3.4) K/uL [place] # (Auto) 0.77 (0.24-0.82) K/uL Eos # (Auto) 0.06 (0-0.50) K/uL Baso # (Auto) 0.03 (0-0.2) K/uL Immature Gran # (Auto) 0.07 H (0.00-0.02) K/uL Sodium 136 (136-145) mmol/L Potassium 3.6 (3.5-5.1) mmol/L Chloride 103 (98-107) mmol/L Carbon Dioxide 25 (21-32) mmol/L Anion Gap 8 (3-11) BUN 6 (6-23) mg/dl Creatinine 0.58 L (0.6-1.2) mg/dl Est Cr Clr Drug Dosing 149.9 ml/min Est GFR ( Amer) 129.0 ml/min Est GFR (Non-Af Amer) 111.3 ml/min BUN/Creatinine Ratio 10.3 (10-20) Glucose 107 H (70-99(Fasting)) mg/dl Calcium 8.9 (8.5-10.1) mg/dl SARS-CoV-2, RNA, NAAT NEGATIVE (NEGATIVE)
[2022-07-10] MEDS: PIPERACILLIN/TAZOBACTAM 4.5 GM in DEXTROSE 5% 100 ML IV SCH ×3 (04:11→20:36)
[2022-07-10] MEDS: LACTATED RINGER'S 1,000 ML IV SCH ×2 (05:41→15:38)
[2022-07-10 06:17] LABS: Basophils # (auto) 0.02 K/uL (0-0.2); Basophils % (auto) 0.2 %; Eosinophils # (auto) 0.16 K/uL (0-0.50); Eosinophils % (auto) 1.5 %; Hematocrit (blood only) 36.8 % (34.1-44.9); Hemoglobin 12.4 g/dl (12.0-16.0); Immature Granulocytes # (auto) 0.04 K/uL (0.00-0.02); Immature Granulocytes % (auto) 0.4 %; Lymphocytes % (auto) 9.6 %; Mean Corpuscular Hemoglobin 30.6 pg (25.0-34.0); Mean Corpuscular Hgb Conc 33.7 g/dL (32.0-36.0); Mean Corpuscular Volume 90.9 fL (80.0-100.0); Mean Platelet Volume 10.4 fL (9.4-12.3); Monocytes # (auto) 0.86 K/uL (0.24-0.82); Monocytes % (auto) 8.3 %; Neutrophils # (auto) 8.34 K/uL (1.4-6.5); Platelet Count 239 K/uL (130-400); RDW Coefficient of Variation 13.2 % (11.5-14.5); RDW Standard Deviation 44.6 fL (36.4-46.3); Red Blood Count 4.05 M/uL (3.93-5.22); White Blood Count 10.42 K/ul (4.8-10.8)
[2022-07-10 06:59] LABS: BUN Creatinine Ratio 12.3 (10-20); Calcium 8.5 mg/dl (8.5-10.1); Creatinine Clr Calc Pharmacy 152.5 ml/min; Est GFR (African American) 129.8 ml/min; Potassium 3.4 mmol/L (3.5-5.1)
[2022-07-10] MEDS: PANTOprazole 40 MG in SYRINGE 0 ML IV SCH (11:25)
--- NOTE | 2022-07-10 14:06 | Surgery Progress Note ---
Date of Service July 10, 2022 Assessment & Plan (1) Right lower quadrant abdominal pain: Plan: There are significant inflammatory changes involving the terminal ileum, appendix, and base of cecum. It is unclear if this is appendicitis extending to these areas or if this is ileitis extending to involve the appendix. There is no evidence for perforation. -afebrile, vss - Leukcoytosis resolved - pain improving - no n,v - +flatus Plan: continue conservative measures with IV antibiotics continue pain management with PO Tylenol, Percocet and IV Toradol as needed may start clear liquids Encourage ambulation SCDs for DVT prophylaxis possible discharge tomorrow pending diet advancement (2) Ileitis, terminal: Plan: Wll need GI evaluation for outpatient follow-up and colonoscopy Dr. Singh has seen and examined pt, agrees with above. Admission and Anticipated Discharge Date Admission Date: July 08, 2022 Supervising Physician Co-Signing Physician Notes I have seen and examined the patient personally and agree with the above asse ssment plan. We will continue conservative management. Advance diet as tolerated. Most likely home tomorrow. We will continue to follow. Subjective feeling better today abdominal pain is less, Toradol helped with pain last night, has not needed anything so far today no n,v would like something to eat only ambulating to bathroom urinating without difficulty passing gas Physical Exam Constitutional: WD/WN, vitals as above no acute distress and not ill appearing Gastrointestinal (Abdomen): Inspection/Auscultation: abdomen normal to inspection and normal bowel sounds; abdomen not distended Percussion/Palpation: + abdomen tender (RLQ on deep palpation) and abdomen soft; no guarding and abdomen not rigid Skin: no rashes, warm and dry Psychiatric: A+Ox3, euthymic affect Results & Data ([facility]) Vital Signs (Past 12 Hours) Vital Signs Temp Pulse Resp BP Pulse Ox O2 Del Method 07/10/22 07:22 37.1 C 91 H 16 116/77 90 Room Air Laboratory Results 07/10/22 07/10/22 Range/Units 05:47 05:47 WBC 10.42 (4.8-10.8) K/ul RBC 4.05 (3.93-5.22) M/uL Hgb 12.4 (12.0-16.0) g/dl Hct 36.8 (34.1-44.9) % MCV 90.9 (80.0-100.0) fL MCH 30.6 (25.0-34.0) pg MCHC 33.7 (32.0-36.0) g/dL RDW Std Deviation 44.6 (36.4-46.3) fL RDW Coeff of Amy 13.2 (11.5-14.5) % Plt Count 239 (130-400) K/uL MPV 10.4 (9.4-12.3) fL Immature Gran % (Auto) 0.4 % Neut % (Auto) 80.0 % Lymph % (Auto) 9.6 % [place] % (Auto) 8.3 % Eos % (Auto) 1.5 % Baso % (Auto) 0.2 % Neut # (Auto) 8.34 H (1.4-6.5) K/uL Lymph # (Auto) 1.00 L (1.2-3.4) K/uL [place] # (Auto) 0.86 H (0.24-0.82) K/uL Eos # (Auto) 0.16 (0-0.50) K/uL Baso # (Auto) 0.02 (0-0.2) K/uL Immature Gran # (Auto) 0.04 H (0.00-0.02) K/uL Sodium 136 (136-145) mmol/L Potassium 3.4 L (3.5-5.1) mmol/L Chloride 102 (98-107) mmol/L Carbon Dioxide 26 (21-32) mmol/L Anion Gap 8 (3-11) BUN 7 (6-23) mg/dl Creatinine 0.57 L (0.6-1.2) mg/dl Est Cr Clr Drug Dosing 152.5 ml/min Est GFR ( Amer) 129.8 ml/min Est GFR (Non-Af Amer) 112.0 ml/min BUN/Creatinine Ratio 12.3 (10-20) Glucose 84 (70-99(Fasting)) mg/dl Calcium 8.5 (8.5-10.1) mg/dl
[2022-07-11] MEDS: LACTATED RINGER'S 1,000 ML IV SCH ×2 (00:53→10:40)
[2022-07-11] MEDS: PIPERACILLIN/TAZOBACTAM 4.5 GM in DEXTROSE 5% 100 ML IV SCH ×3 (04:09→20:10)
[2022-07-11 10:39] LABS: Basophils # (auto) 0.02 K/uL (0-0.2); Basophils % (auto) 0.2 %; Eosinophils # (auto) 0.15 K/uL (0-0.50); Eosinophils % (auto) 1.6 %; Hematocrit (blood only) 37.5 % (34.1-44.9); Hemoglobin 12.8 g/dl (12.0-16.0); Immature Granulocytes # (auto) 0.04 K/uL (0.00-0.02); Immature Granulocytes % (auto) 0.4 %; Lymphocytes # (auto) 0.93 K/uL (1.2-3.4); Lymphocytes % (auto) 10.2 %; Mean Corpuscular Hemoglobin 30.3 pg (25.0-34.0); Mean Corpuscular Hgb Conc 34.1 g/dL (32.0-36.0); Mean Corpuscular Volume 88.7 fL (80.0-100.0); Monocytes # (auto) 0.81 K/uL (0.24-0.82); Monocytes % (auto) 8.9 %; Neutrophils # (auto) 7.19 K/uL (1.4-6.5); Neutrophils % (auto) 78.7 %; Platelet Count 264 K/uL (130-400); RDW Coefficient of Variation 13.3 % (11.5-14.5); RDW Standard Deviation 43.5 fL (36.4-46.3); Red Blood Count 4.23 M/uL (3.93-5.22); White Blood Count 9.14 K/ul (4.8-10.8)
--- NOTE | 2022-07-11 11:45 | Surgery Progress Note ---
Date of Service July 11, 2022 Assessment & Plan (1) Right lower quadrant abdominal pain: Plan: There are significant inflammatory changes involving the terminal ileum, appendix, and base of cecum. It is unclear if this is appendicitis extending to these areas or if this is ileitis extending to involve the appendix. There is no evidence for perforation. -Febrile last evening (07/10/2022) Tmax of 38.6, afebrile this am - Leukocytosis resolved - pain improving - no n,v - +flatus and diarrhea Plan: continue conservative measures with IV antibiotics continue pain management with PO Tylenol, Percocet and IV Toradol as needed advance to full liquids for lunch Continue ambulation SCDs for DVT prophylaxis possible discharge tomorrow pending diet advancement (2) Ileitis, terminal: Plan: Will need GI evaluation for outpatient follow-up and colonoscopy Dr. Singh has seen pt, agrees with above. Admission and Anticipated Discharge Date Admission Date: July 08, 2022 Supervising Physician Co-Signing Physician Notes I seen and examined the patient agree with the above assessment plan. She continues to improve. We will advance her diet as tolerated. Probable discharge to home tomorrow. Subjective feeling good this am had fever last evening no n,v tolerated clears but felt slightly full very quickly passing gas and diarrhea now no fevers this am Physical Exam Constitutional: WD/WN, vitals as above no acute distress and not ill appearing Neck: normal visual inspection and trachea midline Respiratory: normal respiratory effort; no respiratory distress Gastrointestinal (Abdomen): Inspection/Auscultation: abdomen normal to inspection; abdomen not distended Percussion/Palpation: + abdomen tender (RLQ on deep palpation but improving) and abdomen soft; no guarding and abdomen not rigid Skin: no rashes, warm and dry Psychiatric: A+Ox3, euthymic affect Results & Data ([facility]) Vital Signs (Past 12 Hours) Vital Signs Temp Pulse Resp BP Pulse Ox O2 Del Method 07/11/22 06:42 37.4 C 90 16 122/77 92 Room Air 07/11/22 00:19 37.1 C Laboratory Results 07/11/22 07/11/22 Range/Units 10:20 10:20 WBC 9.14 (4.8-10.8) K/ul RBC 4.23 (3.93-5.22) M/uL Hgb 12.8 (12.0-16.0) g/dl Hct 37.5 (34.1-44.9) % MCV 88.7 (80.0-100.0) fL MCH 30.3 (25.0-34.0) pg MCHC 34.1 (32.0-36.0) g/dL RDW Std Deviation 43.5 (36.4-46.3) fL RDW Coeff of Amy 13.3 (11.5-14.5) % Plt Count 264 (130-400) K/uL MPV 10.0 (9.4-12.3) fL Immature Gran % (Auto) 0.4 % Neut % (Auto) 78.7 % Lymph % (Auto) 10.2 % [place] % (Auto) 8.9 % Eos % (Auto) 1.6 % Baso % (Auto) 0.2 % Neut # (Auto) 7.19 H (1.4-6.5) K/uL Lymph # (Auto) 0.93 L (1.2-3.4) K/uL [place] # (Auto) 0.81 (0.24-0.82) K/uL Eos # (Auto) 0.15 (0-0.50) K/uL Baso # (Auto) 0.02 (0-0.2) K/uL Immature Gran # (Auto) 0.04 H (0.00-0.02) K/uL Sodium 138 (136-145) mmol/L Potassium 3.2 L (3.5-5.1) mmol/L Chloride 102 (98-107) mmol/L Carbon Dioxide 26 (21-32) mmol/L Anion Gap 10 (3-11) BUN 3 L (6-23) mg/dl Creatinine 0.51 L (0.6-1.2) mg/dl Est Cr Clr Drug Dosing 170.5 ml/min Est GFR ( Amer) 134.6 ml/min Est GFR (Non-Af Amer) 116.1 ml/min BUN/Creatinine Ratio 5.9 L (10-20) Glucose 129 H (70-99(Fasting)) mg/dl Calcium 8.7 (8.5-10.1) mg/dl
[2022-07-11] MEDS: PANTOprazole 40 MG in SYRINGE 0 ML IV SCH (11:52)
[2022-07-11 12:25] LABS: BUN Creatinine Ratio 5.9 (10-20); Calcium 8.7 mg/dl (8.5-10.1); Creatinine Clr Calc Pharmacy 170.5 ml/min; Est GFR (African American) 134.6 ml/min; Est GFR (Non-African American) 116.1 ml/min; Potassium 3.2 mmol/L (3.5-5.1)
[2022-07-11] MEDS ORDERED: POTASSIUM CHLORIDE CRTAB 20 MEQ TABCR PO STA (16:16)
[2022-07-12] MEDS: LACTATED RINGER'S 1,000 ML IV SCH (00:03)
[2022-07-12] MEDS: PIPERACILLIN/TAZOBACTAM 4.5 GM in DEXTROSE 5% 100 ML IV SCH (04:22)
--- NOTE | 2022-07-12 14:53 | Discharge Summary ---
Date of Service July 12, 2022 Admission HPI Per Admitting Provider 46-year-old woman who presents to the emergency room complaining of 3 to 4 days of abdominal pain. This began as generalized abdominal pain in the mid abdomen. It subsequently migrated to the right lower quadrant. Yesterday it was associated with nausea and vomiting. It was a moderate to severe intensity. It comes and goes in waves. It does not radiate. She notes chills but did not take her temperature. The pain is worse with movement. She has noted decreased appetite. No relieving factors. She did have a similar episode back in February where she also had periumbilical pain that migrated to the right mid to lower abdomen. At that time she was diagnosed with gallbladder disease and underwent a laparoscopic cholecystectomy. Principal Diagnosis Ileitis vs acute appendicitis Discharge Exam Constitutional WD/WN, vitals as above + obese; no acute distress and not ill appearing Neck normal visual inspection and trachea midline Respiratory normal respiratory effort; no respiratory distress Gastrointestinal (Abdomen) Inspection/Auscultation: abdomen normal to inspection; abdomen not distended Percussion/Palpation: + abdomen tender (RLQ on deep palpation but significantly improved and minimal) and abdomen soft; no guarding and abdomen not rigid Skin no rashes, warm and dry Psychiatric A+Ox3, euthymic affect Discharge Data Allergies Allergy/AdvReac Type Severity Reaction Status Date / Time No Known Drug Allergies Allergy Unknown Verified 07/08/22 16:44 SEASONAL Allergy ITCHY, DRY Uncoded 07/08/22 16:54 & RED EYES Consultations 07/08/22 14:27 Consult General Surgery Stat Ordered Studies 07/08/22 13:38 CT abd pelvis IV con only Stat Hospital Course (1) Right lower quadrant abdominal pain: Patient was admitted to hospital for conservative management with IV antibiotics, bowel rest, pain management as needed. She was kept NPO on HD # 1 given degree of inflammation on CT scan. Her leukcytosis was 17k on presentation. She was started on IV Zosyn. Her leukocytosis improved to 13K on HD # 1 and her diet was advanced on HD # 2. She was febrile in the evening of HD # 2 with tmax of 38.6 however was afebrile during rest of her admission. Her leukocytosis trended to normal on HD # 2. Diet was advanced to low fiber diet by HD # 4 and patient was discharged home with 6 days of oral Augmentin to finish 10 day course of antibiotic therapy. She will follow-up in surgical office in 1-2 weeks and will need outpatient colonoscopy in 6-8 weeks. (2) Ileitis, terminal: hospital course as above Total Time Total Time Spent Total Time Spent (In Minutes): 30 minutes Total Time Includes: Examination of the Patient, Discharge Planning and Medication Reconciliation Discharge Plan Discharge Items Patient Disposition: Home - Self-Care Reason For Visit: ILEITIS Discharge Diagnosis: Ileitis (inflammation of last part small bowel) vs Acute appendicitis with significant inflammation Activity: Per Instructions section Non-emergency contact: Primary Care Provider and Surgeon Call non-emergency contact if: you have any medication questions, your pain is not controlled, your pain is worsening and you have a fever Follow-up/Referrals: Ronnie Singh MD [Physician] - 07/20/22 (Follow-up with Dr. Singh in 1-2 weeks) Tiffany Richard CRNP [Primary Care Provider] - 07/16/22 2:00 pm Diet: Low Fiber Addtl Attending Provider Instructions: General Surgery Instructions: - Low fiber diet for 2 weeks and then can slowly advance back to regular diet - You will be prescribed another 6 days of oral antibiotic (Augmentin) that you will take twice a day. Take entire course as directed - If you need to take a stool softener for constipation you can take a daily [id number] stool softener such as Colace or Senna-eliseo. If you have persistent loose stools you can stop taking stool softener. Avoid taking daily laxative unless you are very constipated and stool softener does not produce bowel movement. - You will need colonoscopy in 6-8 weeks. We can get you referred to card fixer at your follow-up visit - Call office at [phone] with any questions/concerns or if you have not been contacted for a follow-up visit in 1-2 weeks from your hospital discharge. Pending Studies at Discharge: No Stand-Alone Forms: [employer], Work/School Release, Smoking Cessation Medications and DC Order Prescriptions: New amoxicillin-pot clavulanate 875-125 mg tablet 1 tab PO BID Qty: 12 0RF Continued loratadine 10 mg tablet 10 mg PO QAM psyllium husk 0.52 gram capsule 1.04 g PO QAM rizatriptan 10 mg tablet,disintegrating See Rx Instructions PO .COMPLEX Qty: 9 5RF Dose Instruction: take 1 tab at onset of headache; if no relief may repeat 1 tab in 2hr; max = 3 tabs/day (24hr) PO Rx Instructions: take 1 tab at onset of headache; repeat q2 hrs prn omeprazole magnesium 20 mg tablet,delayed release (DR/EC) 20 mg PO QAM magnesium 200 mg tablet 200 mg PO QAM acetaminophen [Tylenol Extra Strength] 500 mg Tablet 1,000 mg PO Q6H PRN (Reason: Pain) Glucosamine Chondroitin 550-30-1 mg Capsule 2 cap PO DAILY Collagen Powder 1 dose PO DAILY Discharge Orders: Discharge Order (Routine); Ordered 07/12/22 Ordered By: Brea Lorenz/Other Patient Handouts: Low-Fiber Diet Admission Data Admit Date/Time: 07/08/22 15:50 Attending Provider: Ruth Grace Admit Provider: Ruth Grace Primary Care Provider: Tiffany Richard Other Providers: Ruth Grace Other Interventions: Discharge Summary Assessment (RN) Last Done: 07/12/22 11:40
== END 2022-07-12 12:07 | disposition home or self-care (01) | DRG 392 ==
LOC: ED 12:29 → EDINP 15:50 → 3W 19:00

== ENCOUNTER 2022-07-18 14:51 | Inpatient (IN) ==
[2022-07-18 15:42] LABS: Basophils # (auto) 0.04 K/uL (0-0.2); Basophils % (auto) 0.2 %; Eosinophils # (auto) 0.03 K/uL (0-0.50); Eosinophils % (auto) 0.1 %; Hematocrit (blood only) 39.2 % (34.1-44.9); Hemoglobin 13.3 g/dl (12.0-16.0); Immature Granulocytes # (auto) 0.14 K/uL (0.00-0.02); Immature Granulocytes % (auto) 0.6 %; Lymphocytes % (auto) 6.7 %; Mean Corpuscular Hgb Conc 33.9 g/dL (32.0-36.0); Mean Corpuscular Volume 88.5 fL (80.0-100.0); Mean Platelet Volume 9.8 fL (9.4-12.3); Monocytes # (auto) 1.05 K/uL (0.24-0.82); Monocytes % (auto) 4.7 %; Neutrophils # (auto) 19.55 K/uL (1.4-6.5); Neutrophils % (auto) 87.7 %; Platelet Count 469 K/uL (130-400); RDW Standard Deviation 42.2 fL (36.4-46.3); Red Blood Count 4.43 M/uL (3.93-5.22); White Blood Count 22.31 K/ul (4.8-10.8)
[2022-07-18 16:08] LABS: Albumin Globulin Ratio 1.1 (0.9-2); Albumin Level 3.5 gm/dl (3.4-5.0); BUN Creatinine Ratio 16.3 (10-20); Bilirubin,Total 0.6 mg/dl (0.2-1.0); Est GFR (African American) 136.4 ml/min; Est GFR (Non-African American) 117.7 ml/min; Globulin 3.3 gm/dl (2.5-4.0); Potassium 3.7 mmol/L (3.5-5.1); Total Protein 6.8 gm/dl (6.0-8.3)
[2022-07-18] MEDS ORDERED: SODIUM CHLORIDE 0.9% 1000ML 1,000 ML IV ONE (17:57)
--- NOTE | 2022-07-18 18:25 | Emergency Department Note ---
Impression & Plan Acute appendicitis, Right lower quadrant abdominal pain ED Provider Note NAME: MAXWELL DIAZ AGE: 46 SEX: F : 1975 ARRIVES VIA: Walk-In INFORMANT: Patient, ED PROVIDER(S): Anupam Reyes DO CHIEF COMPLAINT: Abdominal pain HPI: The patient is a 46-year-old female who presented to the emergency department for an evaluation of abdominal pain. The patient was seen in our facility 10 days ago. At that time she was found to have a CT that could be consistent with appendicitis but it was not a clear-cut appendicitis. The patient may have had some involvement of the terminal ileum as well as the cecum. She was admitted by surgery. She had IV antibiotics and was doing much better. The patient was able to be discharged home and was feeling much better. She states that she finished antibiotics only over the last 48 hours. She returns today because of worsening symptoms including abdominal pain and she feels very ill. She had a subjective fever. She is also had some constipation. She denies having any nausea or vomiting. She notices back pain. She states pain is worsened with ambulation as well as palpation over the lower abdomen. She called her primary care physician and was referred back to the emergency department. She does have a follow-up appointment with surgery this Saturday. ROS: See above HPI for pertinent positives & negatives. A total of 10 systems reviewed and were otherwise negative. PAST MEDICAL HISTORY: See Below PAST SURGICAL HISTORY: See Below FAMILY HISTORY: See Below SOCIAL HISTORY: See Below HOME MEDICATIONS: See Below ALLERGIES: See Below VITALS: See Below PHYSICAL EXAMINATION: GENERAL: The patient is awake and alert. The patient is somewhat anxious appearing and appears to be uncomfortable. EYES: The conjunctivae are clear. The pupils are round and reactive. EARS, NOSE, MOUTH AND THROAT: The nose is without any evidence of any deformity. NECK: The neck is nontender and supple. RESPIRATORY: Normal respiratory effort is noted there is no evidence of wheezing rhonchi or rales CARDIOVASCULAR: Regular rate and rhythm noted there no murmurs rubs or gallops normal S1 normal S2. GASTROINTESTINAL: The abdomen is distended and diffusely tender. There is guarding in both lower quadrants. MUSCULOSKELETAL/EXTREMITIES: There is no evidence of gross deformity full range of motion is noted in the hips and shoulders. SKIN: There is no obvious evidence of any rash. There are no petechiae, pallor or cyanosis noted. NEUROLOGIC: Patient is awake alert and oriented x3. Gait was steady. MEDICAL DECISION MAKING: The patient is a 46-year-old female who presented to the emergency department f or abdominal pain. The patient was seen in our facility 10 days ago. I did see this patient initially in the emergency department. I was familiar with her case. When I evaluated the patient initially she did have findings consistent with appendicitis but her CAT scan showed findings that could be consistent with appendicitis versus proximal large bowel and distal small bowel inflammation and swelling. Because of the uncertainty the patient initially was treated with IV antibiotics and was treated as an inpatient by the surgical team. She improved significantly and was able to be discharged on oral antibiotics. She finished antibiotics and presented to the emergency department because of return of pain and worsening pain. The patient's physical exam was again consistent with a possible surgical abdomen. For this reason I discussed her case with the on- call general surgical service. They evaluated the patient in the emergency department and felt that she was a candidate for inpatient management and possible surgical evaluation. The patient was treated with IV fluids and IV a ntibiotics in the emergency department. Triage Nursing notes reviewed. Prior medical records reviewed Vital Signs: reviewed and remarkable for no significant abnormalities Differential diagnosis: Etiologies such as appendicitis, diverticulitis, obstruction, inflammatory bowel disease, renal colic, PUD, biliary pathology, pancreatitis, mesenteric ischemia, aortic pathology, infections, genitourinary, UTI, perforated viscus, as well as others were entertained. ER treatment provided: See below Diagnostics interpreted by me: ECG: none Cardiac Monitoring: An order was placed for continuous cardiac monitoring. The monitor shows a rate of 78 bpm with sinus rhythm. Laboratory studies: As stated above and show below. Imaging studies: See below Consultation(s): I discussed this case with Anthony Ba who is on-call for the general surgical group. Past Med/Surg History Medical History Amenorrhea Depression HX GERD (gastroesophageal reflux disease) UNDER CONTROL Migraines Obesity Palpitations ON OCC-NO CARDIOLOGY Thyroid nodule UNDER OBSERVATION/HAS HAD BIOPSY-BENIGN Per 03/02/21 thyroid u/s- no significant change in several of the thyroid nodules since 2018 Tobacco abuse Quit April 2017, but has an occasional cigarette Surgical History History of esophagogastroduodenoscopy (EGD) History of oophorectomy 2007 for complex cyst History of surgery on lower extremity S/P FOREIGN BODY REMOVAL Hx laparoscopic cholecystectomy (03/28/22) Robotic Laparoscopic Cholecystectomy (Not Applicable) - Da Munoz DO, FACS Family History Family/Other Diabetes PATERNAL GRANDFATHER Dementia Grandfather (Maternal) Dementia Migraine headache Parkinsons disease Father Heart murmur Mother Migraine headache Grandmother (Maternal) Ovarian cancer Other Myocardial infarction Denies family history of Breast cancer Colorectal cancer Social History Smoking Status: Current every day smoker Tobacco Type: Cigarettes Age Started Using Tobacco: 19; Years Smoked: 20; Cigarettes Per Day: 1 PPD; Second Hand Exposure: No; Hx Alcohol Use: Yes Alcohol type: beer Hx Substance Use: No Preferred Language: Turkish Communication Ability: Effective Visual Impairment: No Limitations Hearing Ability: Normal Vocational Coordinator Required: No Beliefs That Will Affect Care: None marital status: single Current Living Situation: Alone current occupational status: employed current occupation: [employer] How many Children do You have: 0 Feels Safe at Home: Yes Safety Concerns: Feels Safe At This Time Childhood Exposure to Second-Hand Smoke: No caffeine: Yes during the past year weight has: decreased > 10 lbs Dental Care, Regularly: Yes Physical Activity Frequency: 1-2 Times per Week Seatbelt Use: always Sunscreen Use: Yes Assistive Devices: Glasses Allergies Allergies Allergy/AdvReac Type Severity Reaction Status Date / Time No Known Drug Allergies Allergy Unknown Verified 07/16/22 14:00 SEASONAL Allergy ITCHY, DRY Uncoded 07/16/22 14:00 & RED EYES Home Meds Home Medications Medication Instructions Recorded Confirmed magnesium 200 mg tablet 200 mg PO QAM 01/26/20 07/16/22 omeprazole magnesium 20 mg 20 mg PO QAM 01/26/20 07/16/22 tablet,delayed release loratadine 10 mg tablet 10 mg PO QAM 02/28/21 07/16/22 psyllium husk 0.52 gram capsule 1.04 g PO QAM 03/01/22 07/16/22 Collagen Powder 1 dose PO DAILY 07/08/22 07/16/22 acetaminophen 500 mg tablet 1,000 mg PO Q6H PRN Pain 07/08/22 07/16/22 (Tylenol Extra Strength) glucosamine sulf dipot 2 cap PO DAILY 07/08/22 07/16/22 chlr,msm,chond 550 mg-C 30 mg-chirag 1 mg capsule (Glucosamine Chondroitin) docusate sodium [Colace] PO 07/16/22 07/16/22 Previous Rx's Medication Instructions Recorded rizatriptan 10 mg disintegrating See Rx Instructions PO .COMPLEX #9 03/01/22 tablet tabs amoxicillin 875 mg-potassium 1 tab PO BID #12 tabs 07/12/22 clavulanate 125 mg tablet Results & Data (ED) Vital Signs Vital Signs - 24 hr 07/18/22 14:58 07/18/22 18:05 07/18/22 19:30 Temperature 36.9 C Temperature Source Temporal Artery Scan Pulse Rate 100 H Pulse Rate [Left Finger] 98 H 84 Pulse Rate from SpO2 Sensor Pulse Rhythm [Left Finger] Regular Pulse Strength [Left Finger] Normal Respiratory Rate 18 20 14 Respiratory Effort / Characteristics Non-Labored Spontaneous Non-Labored Spontaneous Respiratory Depth Normal Normal Respiratory Pattern Regular Blood Pressure 146/99 H Blood Pressure [Right Arm] 129/95 122/82 Blood Pressure Mean 114 Blood Pressure Mean [Right Arm] 106 95 Blood Pressure Position Sitting Blood Pressure Position [Right Arm] Sitting Pulse Oximetry 95 97 99 Oxygen Delivery Method Room Air Room Air Room Air Sepsis Recent Fever Within 48 Hours No Sepsis New/Unexplained Change in Mental Status No Sepsis Action Taken by Nursing No Action Required 07/18/22 20:00 Temperature Temperature Source Pulse Rate 83 Pulse Rate [Left Finger] Pulse Rate from SpO2 Sensor 83 Pulse Rhythm [Left Finger] Pulse Strength [Left Finger] Respiratory Rate 20 Respiratory Effort / Characteristics Respiratory Depth Respiratory Pattern Blood Pressure 120/72 Blood Pressure [Right Arm] Blood Pressure Mean 88 Blood Pressure Mean [Right Arm] Blood Pressure Position Blood Pressure Position [Right Arm] Pulse Oximetry 96 Oxygen Delivery Method Room Air Sepsis Recent Fever Within 48 Hours Sepsis New/Unexplained Change in Mental Status Sepsis Action Taken by Alf Medications Current Medication List: was personally reviewed by me Laboratory Data Attestation: I reviewed the patient's lab results. Result diagrams: 07/19/22 05:46 07/19/22 05:46 Lab Results 07/18/22 07/18/22 07/18/22 Range/Units 15:13 15:13 19:32 WBC 22.31 H (4.8-10.8) K/ul RBC 4.43 (3.93-5.22) M/uL Hgb 13.3 (12.0-16.0) g/dl Hct 39.2 (34.1-44.9) % MCV 88.5 (80.0-100.0) fL MCH 30.0 (25.0-34.0) pg MCHC 33.9 (32.0-36.0) g/dL RDW Std Deviation 42.2 (36.4-46.3) fL RDW Coeff of Amy 13.0 (11.5-14.5) % Plt Count 469 H (130-400) K/uL MPV 9.8 (9.4-12.3) fL Immature Gran % (Auto) 0.6 % Neut % (Auto) 87.7 % Lymph % (Auto) 6.7 % [place] % (Auto) 4.7 % Eos % (Auto) 0.1 % Baso % (Auto) 0.2 % Neut # (Auto) 19.55 H (1.4-6.5) K/uL Lymph # (Auto) 1.50 (1.2-3.4) K/uL [place] # (Auto) 1.05 H (0.24-0.82) K/uL Eos # (Auto) 0.03 (0-0.50) K/uL Baso # (Auto) 0.04 (0-0.2) K/uL Immature Gran # (Auto) 0.14 H (0.00-0.02) K/uL Sodium 137 (136-145) mmol/L Potassium 3.7 (3.5-5.1) mmol/L Chloride 103 (98-107) mmol/L Carbon Dioxide 26 (21-32) mmol/L Anion Gap 8 (3-11) BUN 8 (6-23) mg/dl Creatinine 0.49 L (0.6-1.2) mg/dl Est Cr Clr Drug Dosing 177.0 ml/min Est GFR ( Amer) 136.4 ml/min Est GFR (Non-Af Amer) 117.7 ml/min BUN/Creatinine Ratio 16.3 (10-20) Glucose 121 H (70-99(Fasting)) mg/dl Calcium 9.0 (8.5-10.1) mg/dl Total Bilirubin 0.6 (0.2-1.0) mg/dl AST 10 L (13-39) U/L ALT 15 (7-52) U/L Alkaline Phosphatase 73 (34-104) U/L Total Protein 6.8 (6.0-8.3) gm/dl Albumin 3.5 (3.4-5.0) gm/dl Globulin 3.3 (2.5-4.0) gm/dl Albumin/Globulin Ratio 1.1 (0.9-2) SARS-CoV-2, RNA, NAAT NEGATIVE (NEGATIVE) Administered Medications Lactated Ringer's (Lr) 1,000 mls @ 125 mls/hr IV .Q8H YOLANDA Stop: 08/17/22 20:14 Last Infusion: 07/19/22 08:33 Dose: 0 mls/hr Documented By: Admin: 07/19/22 05:06 Dose: 125 mls/hr Documented By: Infusion: 07/19/22 05:06 Dose: 125 mls/hr Documented By: Infusion: 07/19/22 03:23 Dose: 125 mls/hr Documented By: Infusion: 07/18/22 23:20 Dose: 0 mls/hr Documented By: Admin: 07/18/22 20:40 Dose: 125 mls/hr Documented By: SAHIL Piperacillin Sod/Tazobactam (Sod 4.5 gm/ Dextrose) 120 mls @ 30 mls/hr IV Q8H YOLANDA; Protocol Stop: 07/29/22 00:00 Last Admin: 07/19/22 08:33 Dose: 30 mls/hr Documented By: Infusion: 07/19/22 03:22 Dose: 0 mls/hr Documented By: Admin: 07/18/22 23:21 Dose: 30 mls/hr Documented By: EVELYN Famotidine 20 mg/ Syringe 5 mls @ 2.5 mls/min IV BID YOLANDA Stop: 08/17/22 21:34 Last Admin: 07/19/22 08:15 Dose: 2.5 mls/min Documented By: Admin: 07/18/22 23:21 Dose: 2.5 mls/min Documented By: EVELYN Discontinued Medications Sodium Chloride (Nss 1000ml) 1,000 mls @ 999 mls/hr IV .Q1H1M ONE Stop: 07/18/22 18:57 Last Infusion: 07/18/22 19:22 Dose: 0 mls/hr Documented By: Admin: 07/18/22 18:04 Dose: 999 mls/hr Documented By: ERLINDA Piperacillin Sod/Tazobactam Sod (Zosyn) 4.5 gm in 120 mls @ 240 mls/hr IV NOW ONE Stop: 07/18/22 19:51 Last Infusion: 07/18/22 20:09 Dose: 0 mls/hr Documented By: Admin: 07/18/22 19:34 Dose: 240 mls/hr Documented By: SAHIL Ioversol (Optiray 300 100ml) 92 ml IV ONCE ONE Stop: 07/18/22 19:08 Last Admin: 07/18/22 19:08 Dose: 92 ml Documented By: [facility] Imaging Data Radiologist's Impression: Abdomen/Pelvis CT 07/18/22 17:57 CT OF THE ABDOMEN AND PELVIS WITH CONTRAST CLINICAL HISTORY: Right lower quadrant pain. COMPARISON STUDY: CT of the abdomen and pelvis July 08, 2022. TECHNIQUE: Following IV administration of 92 mL of Optiray, axial images of the abdomen and pelvis were obtained from the lung bases to the proximal femurs. Images were reviewed in the axial, sagittal, and coronal planes. IV contrast was administered without complication. Automated exposure control was utilized for the study. A dose lowering technique was utilized adhering to the principles of ALARA. CT DOSE: 1015.95 mGy.cm FINDINGS: Lung bases are unremarkable. No pneumatosis, free air or portal venous gas is present. There is mild splenomegaly. No biliary or pancreatic ductal dilatation is identified status post cholecystectomy. Adrenal glands and kidneys are normal. There is no hydronephrosis. There is no evidence for a bowel obstruction. The previously described extensive inflammatory process within the right lower quadrant has progressed since CT of July 08, 2022. This is centered on the cecum. The appendix is mildly dilated, measuring 8 mm in caliber . This is similar to prior exam. There is an adjacent 2.1 x 1 cm pocket of fluid along the medial base of the cecum. This favors a tiny fluid collection. No drainable fluid collection is present. Cecal wall thickening has progressed. Wall thickening of multiple distal ileal loops has also progressed with adjacent inflammation. There is no extraluminal gas. Prominent nodes are likely reactive. No additional fluid collections are identified. Inflammation extends into the pelvis. Major vasculature is patent. IMPRESSION: Progression of the extensive right lower quadrant inflammatory process centered on the distal ileum, cecum and appendix since CT of July 08, 2022. Inflammation now extends into the pelvis. The etiology for this process is not entirely clear. However, the appendix is mildly dilated with small pocket of adjacent fluid which may reflect a developing abscess. Therefore, acute appendicitis, possibly perforated, is a primary consideration. However, a terminal ileitis/ileocolitis could appear similar. No bowel obstruction. No drainable fluid collection. No free air. ACT 112: Negative or not required by law. Electronically signed by: Iván Emmanuel M.D. 07/18/2022 7:59 PM Discharge Plan Visit Data Chief Complaint: Illness Stated Complaint: LETHARGIC,FEVER - DISCHARGED FROM HOSPITAL 07/12 ED Provider: Anupam Reyes Discharge Problem: Acute appendicitis, Right lower quadrant abdominal pain Patient Disposition: Admitted As Inpatient Discharge Instructions Interventions: ED Discharge Assessment Last Done: 07/18/22 21:05
[2022-07-18] MEDS ORDERED: OPTIRAY 300 100mL IV ONE (19:07)
[2022-07-18] MEDS ORDERED: PIPERACILLIN/TAZOBACTAM 4.5 GM/120 ML BAG IV ONE (19:22)
--- NOTE | 2022-07-18 20:00 | CT Scan Report ---
CT OF THE ABDOMEN AND PELVIS WITH CONTRAST CLINICAL HISTORY: Right lower quadrant pain. COMPARISON STUDY: CT of the abdomen and pelvis July 08, 2022. TECHNIQUE: Following IV administration of 92 mL of Optiray, axial images of the abdomen and pelvis we re obtained from the lung bases to the proximal femurs. Images were reviewed in the axial, sagittal, and coronal planes. IV contrast was administered without complication. Automated exposure control wa s utilized for the study. A dose lowering technique was utilized adhering to the principles of ALARA . CT DOSE: 1015.95 mGy.cm FINDINGS: Lung bases are unremarkable. No pneumatosis, free air or portal venous gas is present. Ther e is mild splenomegaly. No biliary or pancreatic ductal dilatation is identified status post cholecys tectomy. Adrenal glands and kidneys are normal. There is no hydronephrosis. There is no evidence for a bowel obstruction. The previously described extensive inflammatory process within the right lower q uadrant has progressed since CT of July 08, 2022. This is centered on the cecum. The appendix is mi ldly dilated, measuring 8 mm in caliber. This is similar to prior exam. There is an adjacent 2.1 x 1 cm pocket of fluid along the medial base of the cecum. This favors a tiny fluid collection. No draina ble fluid collection is present. Cecal wall thickening has progressed. Wall thickening of multiple di stal ileal loops has also progressed with adjacent inflammation. There is no extraluminal gas. Promin ent nodes are likely reactive. No additional fluid collections are identified. Inflammation extends i nto the pelvis. Major vasculature is patent. IMPRESSION: Progression of the extensive right lower quadrant inflammatory process centered on the distal ileum, cecum and appendix since CT of July 08, 2022. Inflammation now extends into the pelvis. The etiolog y for this process is not entirely clear. However, the appendix is mildly dilated with small pocket o f adjacent fluid which may reflect a developing abscess. Therefore, acute appendicitis, possibly perf orated, is a primary consideration. However, a terminal ileitis/ileocolitis could appear similar. No bowel obstruction. No drainable fluid collection. No free air. ACT 112: Negative or not required by law. Electronically signed by: Iván Emmanuel M.D. 07/18/2022 7:59 PM
--- NOTE | 2022-07-18 20:06 | History & Physical Report ---
Date of Service July 18, 2022 Assessment & Plan (1) Right lower quadrant abdominal pain: Plan: The etiology of patient's right lower quadrant abdominal pain is not clearly delineated, however after discussion with the radiologist interpreting patient's CAT scan considerations include appendicitis, ileitis, cecal diverticulitis, or other inflammatory processes. I discussed the case with my attending physician Dr. Munoz and as there is concern for marked inflammation involving the appendix, cecum, and terminal ileum any surgical intervention would be a complex undertaking and may require an ileocecectomy as opposed to merely an appendectomy. He therefore recommends we proceed in a nonoperative fashion in the following manner: Keep patient n.p.o. Hydrate with IV fluids Provide analgesics Provide antiemetics Continue antibiotics in form of Zosyn The patient will be reevaluated at periodic intervals and determination about possible surgical goal intervention will be made at a later date We will use SCDs for DVT prevention, no chemical means due to potential need for surgery She will be a level 1 full code History of Present Illness Chief Complaint: Abdominal pain, concern for appendicitis Primary Care Provider: SAMY Pacheco This is a 46-year-old female who was recently admitted to [facility] from 07/08/2022 to 07/12/2022. Prior to that admission the patient experienced 3 to 4 days of abdominal pain with the pain being generalized to the mid abdomen with subsequent migration to the right lower quadrant. A CT scan of the abdomen pelvis at that time showed some inflammatory change centered in the right lower quadrant with mild wall thickening of the appendix, cecum, and terminal ileum the appendix was noted to be slightly thickened and slightly enlarged at 8 mm. At time of admission the patient's white blood cell count was noted to be 7.54. It had normalized by the time of discharge. The patient was admitted on the [facility] general surgery service. As it was unclear if the patient had an appendicitis or combination of appendicitis with ileitis and there was no evidence of perforation it was felt the patient would likely require an ileocecectomy if operative intervention was employed. The patient was therefore treated in a conservative manner with intravenous antibiotics and was ultimately discharged home on 07/12/2022. Patient notes that she was discharged home on a 6-day course of Augmentin which she finished today. The patient notes that earlier today she developed a fever of 103 which self resolved in "a few moments". Patient notes that she specifically did not take any antipyretics to resolve her fever. She specifically denies any nausea or vomiting. She did report some lethargy and weakness. She notes that since discharge home she has been eating but noted her appetite was poor today, but she was able to eat lunch at approximate 12:00 PM at which time she had pizza. Patient notes that she has been having liquid bowel movements with her most recent bowel movement being earlier this evening. She denies any melena or hematochezia. Patient does report in addition to the above signs and symptoms that she has some right lower quadrant pain that is nonradiating. She notes that the pain is improved with lying still and worse with certain movements. I did question her on prior abdominal surgeries and she has had a cholecystectomy by Dr. Munoz of [facility] group general surgery in March of this year. She also underwent a right oophorectomy. She is unsure if she has any family history of inflammatory bowel disease and she has never had a colonoscopy. Today in the emergency department the patient had labs and imaging which I independently reviewed. CBC revealed white blood cell count is now elevated at 22.3. Hemoglobin and hematocrit were noted to be normal. Her platelet count was 469,000. Chemistry profile showed sodium, potassium, and BUN were normal. Her creatinine was actually low at 0.49. There is no elevation of patient's LFTs. A COVID test was performed and was noted be negative. A CT scan of the abdomen pelvis was performed. There is been noted progression of the extensive right lower quadrant inflammatory process which involves the distal ileum, cecum, and appendix. The inflammation was noted to extend into the pelvis. The appendix is mildly dilated and there is a small fluid collection adjacent to the appendix. It was uncertain if this was a developing abscess. I did discuss this with radiology and they did not feel that this was drainable. No free air was noted. No extraluminal gas was noted in the bowel or small bowel. Since arrival to the emergency department the patient has received some intravenous fluids, antibiotics in the form of Zosyn, and she was noted to be afebrile, normotensive, not tachycardic, and in no distress. Allergies Allergy/AdvReac Type Severity Reaction Status Date / Time No Known Drug Allergies Allergy Unknown Verified 07/16/22 14:00 SEASONAL Allergy ITCHY, DRY Uncoded 07/16/22 14:00 & RED EYES Home Medications Medication Instructions Recorded Confirmed Type magnesium 200 mg tablet 200 mg PO QAM 01/26/20 07/16/22 History omeprazole magnesium 20 mg 20 mg PO QAM 01/26/20 07/16/22 History tablet,delayed release loratadine 10 mg tablet 10 mg PO QAM 02/28/21 07/16/22 History psyllium husk 0.52 gram capsule 1.04 g PO QAM 03/01/22 07/16/22 History rizatriptan 10 mg disintegrating See Rx Instructions PO .COMPLEX #9 03/01/22 07/16/22 Rx tablet tabs Collagen Powder 1 dose PO DAILY 07/08/22 07/16/22 History acetaminophen 500 mg tablet 1,000 mg PO Q6H PRN Pain 07/08/22 07/16/22 History (Tylenol Extra Strength) glucosamine sulf dipot 2 cap PO DAILY 07/08/22 07/16/22 History chlr,msm,chond 550 mg-C 30 mg-chirag 1 mg capsule (Glucosamine Chondroitin) amoxicillin 875 mg-potassium 1 tab PO BID #12 tabs 07/12/22 07/16/22 Rx clavulanate 125 mg tablet docusate sodium [Colace] PO 07/16/22 07/16/22 History Past Med/Surg History Medical History Amenorrhea Depression HX GERD (gastroesophageal reflux disease) UNDER CONTROL Migraines Obesity Palpitations ON OCC-NO CARDIOLOGY Thyroid nodule UNDER OBSERVATION/HAS HAD BIOPSY-BENIGN Per 03/02/21 thyroid u/s- no significant change in several of the thyroid nodules since 2018 Tobacco abuse Quit April 2017, but has an occasional cigarette Surgical History History of esophagogastroduodenoscopy (EGD) History of oophorectomy 2007 for complex cyst History of surgery on lower extremity S/P FOREIGN BODY REMOVAL Hx laparoscopic cholecystectomy (03/28/22) Robotic Laparoscopic Cholecystectomy (Not Applicable) - Da Munoz DO, FACS Family History Family/Other Diabetes PATERNAL GRANDFATHER Dementia Grandfather (Maternal) Dementia Migraine headache Parkinsons disease Father Heart murmur Mother Migraine headache Grandmother (Maternal) Ovarian cancer Other Myocardial infarction Denies family history of Breast cancer Colorectal cancer Social History Smoking Status: Former smoker Tobacco Type: Cigarettes Age Started Using Tobacco: 19; Years Smoked: 20; Cigarettes Per Day: 1PPD; Second Hand Exposure: No; Hx Alcohol Use: Yes Alcohol type: beer Hx Substance Use: No Preferred Language: Mauritanian Communication Ability: Effective Visual Impairment: No Limitations Hearing Ability: Normal Doctor Of Nursing Practice Required: No Beliefs That Will Affect Care: None marital status: single Current Living Situation: Alone current occupational status: employed current occupation: [employer] How many Children do You have: 0 Feels Safe at Home: Yes Childhood Exposure to Second-Hand Smoke: No caffeine: Yes during the past year weight has: decreased > 10 lbs Dental Care, Regularly: Yes Physical Activity Frequency: 1-2 Times per Week Seatbelt Use: always Sunscreen Use: Yes Assistive Devices: None Review of Systems Constitutional: + fever; no chills Eyes: + corrective lenses; no eye pain Ear, Nose, Mouth, Throat: no ear pain Respiratory: no cough and no dyspnea Cardiovascular: no chest pain Gastrointestinal: + abdominal pain and + diarrhea/loose stools; no nausea and no vomiting Genitourinary: no dysuria Musculoskeletal: no back pain Integumentary: no rash Neurologic: no localized weakness Physical Exam Constitutional: WD/WN, vitals as above Eyes: no conjunctival abnormality Wears glasses ENMT: Ears: no hearing impairment Mouth: no oropharynx abnormality Mucous membranes are moist Neck: trachea midline Respiratory: normal respiratory effort, lungs clear to auscultation Cardiovascular: Rate/Rhythm: regular rate and regular rhythm Vessels: do rsalis pedis pulses present and radial pulses present Gastrointestinal (Abdomen): Abdomen is soft and nondistended. No rigidity is noted. Patient had multiple well-healed incisions from previous surgery. There is no rebound tenderness or guarding. Patient was noted to have significant tenderness with deep palpation in the right lower quadrant. Musculoskeletal: No calf tenderness Skin: no rashes Neurologic: moves all extremities Psychiatric: A+Ox3, euthymic affect Results & Data Results & Data ([facility]) Vital Signs (Past 12 Hours) Vital Signs Temp Pulse Pulse Resp BP BP Pulse Ox 07/18/22 19:30 84 14 122/82 99 07/18/22 18:05 98 H 20 129/95 97 07/18/22 14:58 36.9 C 100 H 18 146/99 H 95 O2 Del Method 07/18/22 19:30 Room Air 07/18/22 18:05 Room Air 07/18/22 14:58 Room Air PG Care Time/CCT Total # of Minutes Spent Total Time Spent with Patient: Total time spent is greater than 50% in coordination of care (as documented) at patient's floor/unit and/or counseling patient: Coding Level of Care Code 97465 Initial Inpt Care Lvl 3 Diagnoses Right lower quadrant abdominal pain R10.31
[2022-07-18] MEDS: LACTATED RINGER'S 1,000 ML IV SCH (20:40)
[2022-07-18] MEDS ORDERED: ONDANSETRON INJ 2 MG/ML 2 ML VIAL IV PRN (21:35)
[2022-07-18] MEDS ORDERED: ACETAMINOPHEN 1,000 MG/100 ML VIAL IV PRN (21:35)
[2022-07-18] MEDS ORDERED: MoRPHine SULFATE 4 MG/ML 1 ML CARP\\VIAL IV PRN (21:35)
[2022-07-18] MEDS: FAMOTIDINE 20 MG in SYRINGE 3 ML IV SCH (23:21)
[2022-07-18] MEDS: PIPERACILLIN/TAZOBACTAM 4.5 GM in DEXTROSE 5% 100 ML IV SCH (23:21)
[2022-07-19] MEDS: LACTATED RINGER'S 1,000 ML IV SCH ×3 (05:06→20:22)
[2022-07-19 06:04] LABS: Basophils # (auto) 0.03 K/uL (0-0.2); Basophils % (auto) 0.2 %; Eosinophils # (auto) 0.09 K/uL (0-0.50); Eosinophils % (auto) 0.6 %; Hematocrit (blood only) 35.7 % (34.1-44.9); Immature Granulocytes % (auto) 0.7 %; Lymphocytes # (auto) 1.48 K/uL (1.2-3.4); Lymphocytes % (auto) 9.8 %; Mean Corpuscular Hemoglobin 30.3 pg (25.0-34.0); Mean Corpuscular Hgb Conc 33.6 g/dL (32.0-36.0); Mean Corpuscular Volume 90.2 fL (80.0-100.0); Mean Platelet Volume 9.5 fL (9.4-12.3); Monocytes # (auto) 1.02 K/uL (0.24-0.82); Monocytes % (auto) 6.7 %; Neutrophils # (auto) 12.42 K/uL (1.4-6.5); Platelet Count 398 K/uL (130-400); RDW Coefficient of Variation 13.2 % (11.5-14.5); RDW Standard Deviation 43.7 fL (36.4-46.3); Red Blood Count 3.96 M/uL (3.93-5.22); White Blood Count 15.14 K/ul (4.8-10.8)
[2022-07-19 06:41] LABS: BUN Creatinine Ratio 11.3 (10-20); Calcium 8.5 mg/dl (8.5-10.1); Est GFR (African American) 132.9 ml/min; Est GFR (Non-African American) 114.7 ml/min; Potassium 3.6 mmol/L (3.5-5.1)
[2022-07-19] MEDS: FAMOTIDINE 20 MG in SYRINGE 3 ML IV SCH ×2 (08:15→20:30)
[2022-07-19] MEDS: PIPERACILLIN/TAZOBACTAM 4.5 GM in DEXTROSE 5% 100 ML IV SCH ×3 (08:33→23:47)
--- NOTE | 2022-07-19 12:30 | Surgery Progress Note ---
Date of Service July 19, 2022 Assessment & Plan (1) Ileitis, terminal: Plan: 46-year-old female with right lower quadrant formation and abscess of unknown etiology. Could be related to a primary appendicitis versus typhlitis or ileitis. She is responding quickly to antibiotics. Continue IV antibiotics Will consider PICC line with outpatient IV antibiotics versus different oral regimen such as Cipro/Flagyl If it continues to improve and white count normalizes and is afebrile and tolerating a low fiber diet, she can discharge home and we will plan on an outpatient CT scan in a few weeks She would also need an outpatient colonoscopy once the inflammation dies down with potential interval appendectomy this is normal We will advance her diet today Dr. Bautista covering over the weekend (2) Acute appendicitis: Admission and Anticipated Discharge Date Admission Date: July 18, 2022 Subjective 46-year-old female known to me from prior cholecystectomy in March, admitted overnight with right lower quadrant inflammation and small developing abscess. She was admitted last week, and after completing her oral antibiotics she started having fevers which brought her into the emergency department. She is feeling much better this morning, afebrile. She is hungry. Physical Exam Constitutional: WD/WN, vitals as above + obese Respiratory: normal respiratory effort, lungs clear to auscultation Cardiovascular: RRR, no murmur, no edema Gastrointestinal (Abdomen): Percussion/Palpation: + abdomen tender (Tenderness palpation the right lower quadrant) and abdomen soft; no guarding and abdomen not rigid Results & Data ([facility]) Vital Signs (Past 12 Hours) Vital Signs Temp Pulse Resp BP Pulse Ox O2 Del Method 07/19/22 06:20 37.1 C 78 16 102/65 95 Room Air Laboratory Results Laboratory Results - last 24 hr 07/18/22 07/18/22 07/18/22 15:13 15:13 19:32 WBC 22.31 H RBC 4.43 Hgb 13.3 Hct 39.2 MCV 88.5 MCH 30.0 MCHC 33.9 RDW Std Deviation 42.2 RDW Coeff of Amy 13.0 Plt Count 469 H MPV 9.8 Immature Gran % (Auto) 0.6 Neut % (Auto) 87.7 Lymph % (Auto) 6.7 [place] % (Auto) 4.7 Eos % (Auto) 0.1 Baso % (Auto) 0.2 Neut # (Auto) 19.55 H Lymph # (Auto) 1.50 [place] # (Auto) 1.05 H Eos # (Auto) 0.03 Baso # (Auto) 0.04 Immature Gran # (Auto) 0.14 H Sodium 137 Potassium 3.7 Chloride 103 Carbon Dioxide 26 Anion Gap 8 BUN 8 Creatinine 0.49 L Est Cr Clr Drug Dosing 177.0 Est GFR ( Amer) 136.4 Est GFR (Non-Af Amer) 117.7 BUN/Creatinine Ratio 16.3 Glucose 121 H Calcium 9.0 Total Bilirubin 0.6 AST 10 L ALT 15 Alkaline Phosphatase 73 Total Protein 6.8 Albumin 3.5 Globulin 3.3 Albumin/Globulin Ratio 1.1 SARS-CoV-2, RNA, NAAT NEGATIVE 07/19/22 07/19/22 05:46 05:46 WBC 15.14 H RBC 3.96 Hgb 12.0 Hct 35.7 MCV 90.2 MCH 30.3 MCHC 33.6 RDW Std Deviation 43.7 RDW Coeff of Amy 13.2 Plt Count 398 MPV 9.5 Immature Gran % (Auto) 0.7 Neut % (Auto) 82.0 Lymph % (Auto) 9.8 [place] % (Auto) 6.7 Eos % (Auto) 0.6 Baso % (Auto) 0.2 Neut # (Auto) 12.42 H Lymph # (Auto) 1.48 [place] # (Auto) 1.02 H Eos # (Auto) 0.09 Baso # (Auto) 0.03 Immature Gran # (Auto) 0.10 H Sodium 136 Potassium 3.6 Chloride 105 Carbon Dioxide 25 Anion Gap 6 BUN 6 Creatinine 0.53 L Est Cr Clr Drug Dosing 164.0 Est GFR ( Amer) 132.9 Est GFR (Non-Af Amer) 114.7 BUN/Creatinine Ratio 11.3 Glucose 98 Calcium 8.5 Total Bilirubin AST ALT Alkaline Phosphatase Total Protein Albumin Globulin Albumin/Globulin Ratio SARS-CoV-2, RNA, NAAT Diagnostic Findings CT OF THE ABDOMEN AND PELVIS WITH CONTRAST CLINICAL HISTORY: Right lower quadrant pain. COMPARISON STUDY: CT of the abdomen and pelvis July 08, 2022. TECHNIQUE: Following IV administration of 92 mL of Optiray, axial images of the abdomen and pelvis were obtained from the lung bases to the proximal femurs. Images were reviewed in the axial, sagittal, and coronal planes. IV contrast was administered without complication. Automated exposure control was utilized for the study. A dose lowering technique was utilized adhering to the principles of ALARA. CT DOSE: 1015.95 mGy.cm FINDINGS: Lung bases are unremarkable. No pneumatosis, free air or portal venous gas is present. There is mild splenomegaly. No biliary or pancreatic ductal dilatation is identified status post cholecystectomy. Adrenal glands and kidneys are normal. There is no hydronephrosis. There is no evidence for a bowel obstruction. The previously described extensive inflammatory process within the right lower quadrant has progressed since CT of July 08, 2022. This is centered on the cecum. The appendix is mildly dilated, measuring 8 mm in caliber. This is similar to prior exam. There is an adjacent 2.1 x 1 cm pocket of fluid along the medial base of the cecum. This favors a tiny fluid collection. No drainable fluid collection is present. Cecal wall thickening has progressed. Wall thickening of multiple distal ileal loops has also progressed with adjacent inflammation. There is no extraluminal gas. Prominent nodes are likely reactive. No additional fluid collections are identified. Inflammation extends into the pelvis. Major vasculature is patent. IMPRESSION: Progression of the extensive right lower quadrant inflammatory process centered on the distal ileum, cecum and appendix since CT of July 08, 2022. Inflammation now extends into the pelvis. The etiology for this process is not entirely clear. However, the appendix is mildly dilated with small pocket of adjacent fluid which may reflect a developing abscess. Therefore, acute appendicitis, possibly perforated, is a primary consideration. However, a terminal ileitis/ileocolitis could appear similar. No bowel obstruction. No drainable fluid collection. No free air. PG Care Time/CCT Total # of Minutes Spent Total Time Spent with Patient: Total time spent is greater than 50% in coordination of care (as documented) at patient's floor/unit and/or counseling patient: Coding Level of Care Code 14012 Subseq Hosp Care Lvl 1 Diagnoses Ileitis, terminal K50.00 Acute appendicitis K35.30 Acute appendicitis type: with localized peritonitis Appendicitis abscess presence: unspecified whether abscess present Appendicitis gangrene presence: unspecified whether gangrene present Appendicitis perforation presence: unspecified whether perforation present (1) Acute appendicitis Acute appendicitis type: with localized peritonitis Appendicitis abscess presence: unspecified whether abscess present Appendicitis gangrene presence: unspecified whether gangrene present Appendicitis perforation presence: unspecified whether perforation present Qualified Code(s): K35.30 - Acute appendicitis with localized peritonitis, without perforation or gangrene
[2022-07-20] MEDS: LACTATED RINGER'S 1,000 ML IV SCH ×3 (03:50→19:46)
[2022-07-20 07:15] LABS: Basophils # (auto) 0.03 K/uL (0-0.2); Basophils % (auto) 0.3 %; Eosinophils # (auto) 0.15 K/uL (0-0.50); Eosinophils % (auto) 1.3 %; Hematocrit (blood only) 38.2 % (34.1-44.9); Hemoglobin 12.5 g/dl (12.0-16.0); Immature Granulocytes # (auto) 0.06 K/uL (0.00-0.02); Immature Granulocytes % (auto) 0.5 %; Lymphocytes # (auto) 1.59 K/uL (1.2-3.4); Lymphocytes % (auto) 13.6 %; Mean Corpuscular Hemoglobin 29.7 pg (25.0-34.0); Mean Corpuscular Hgb Conc 32.7 g/dL (32.0-36.0); Mean Corpuscular Volume 90.7 fL (80.0-100.0); Mean Platelet Volume 9.7 fL (9.4-12.3); Monocytes # (auto) 0.68 K/uL (0.24-0.82); Monocytes % (auto) 5.8 %; Neutrophils # (auto) 9.16 K/uL (1.4-6.5); Neutrophils % (auto) 78.5 %; Platelet Count 452 K/uL (130-400); RDW Coefficient of Variation 13.1 % (11.5-14.5); RDW Standard Deviation 43.4 fL (36.4-46.3); Red Blood Count 4.21 M/uL (3.93-5.22); White Blood Count 11.67 K/ul (4.8-10.8)
--- NOTE | 2022-07-20 07:39 | Surgery Progress Note ---
Date of Service July 20, 2022 Assessment & Plan (1) Ileitis, terminal: Plan: We will continue with IV antibiotics-at least 2-3 more days as this was a readmission Advance patient to full liquids Encourage ambulation Admission and Anticipated Discharge Date Admission Date: July 18, 2022 Subjective Patient feeling improved Had a bowel movement Tolerating some clear liquids Walking in the hallway Review of Systems Constitutional: + fever; no chills Eyes: + corrective lenses; no eye pain Ear, Nose, Mouth, Throat: no ear pain Respiratory: no cough and no dyspnea Cardiovascular: no chest pain Gastrointestinal: + abdominal pain and + diarrhea/loose stools; no nausea and no vomiting Genitourinary: no dysuria Musculoskeletal: no back pain Integumentary: no rash Neurologic: no localized weakness Physical Exam Physical Exam: Patient in no distress with normal affect Constitutional: WD/WN, vitals as above + obese Respiratory: normal respiratory effort, lungs clear to auscultation Cardiovascular: RRR, no murmur, no edema Results & Data ([facility]) Vital Signs (Past 12 Hours) Vital Signs Temp Pulse Resp BP Pulse Ox O2 Del Method 07/19/22 20:28 37.3 C 80 16 134/84 96 Room Air PG Care Time/CCT Total # of Minutes Spent Total Time Spent with Patient: Total time spent is greater than 50% in coordination of care (as documented) at patient's floor/unit and/or counseling patient: Coding Level of Care Code 85658 Subseq Hosp Care Lvl 2 Diagnoses Ileitis, terminal K50.00
[2022-07-20 07:42] LABS: BUN Creatinine Ratio 7.7 (10-20); Calcium 9.1 mg/dl (8.5-10.1); Creatinine Clr Calc Pharmacy 167.2 ml/min; Est GFR (African American) 133.7 ml/min; Est GFR (Non-African American) 115.4 ml/min; Potassium 3.9 mmol/L (3.5-5.1)
[2022-07-20] MEDS: PIPERACILLIN/TAZOBACTAM 4.5 GM in DEXTROSE 5% 100 ML IV SCH ×2 (08:47→15:54)
[2022-07-20] MEDS: FAMOTIDINE 20 MG in SYRINGE 3 ML IV SCH ×2 (09:15→20:48)
[2022-07-21] MEDS: PIPERACILLIN/TAZOBACTAM 4.5 GM in DEXTROSE 5% 100 ML IV SCH ×3 (00:58→16:13)
[2022-07-21] MEDS: LACTATED RINGER'S 1,000 ML IV SCH (03:49)
--- NOTE | 2022-07-21 07:05 | Surgery Progress Note ---
Date of Service July 21, 2022 Assessment & Plan (1) Ileitis, terminal: Plan: Patient is improving slowly See [facility] for plan Admission and Anticipated Discharge Date Admission Date: July 18, 2022 Subjective Doing well taking no pain medication Vital signs stable Tolerating full liquids Not too much bowel function yet We will advance to low fiber diet Add senna syrup DC her IV fluid maintenance Continue IV antibiotics Review of Systems Constitutional: + fever; no chills Eyes: + corrective lenses; no eye pain Ear, Nose, Mouth, Throat: no ear pain Respiratory: no cough and no dyspnea Cardiovascular: no chest pain Gastrointestinal: + abdominal pain and + diarrhea/loose stools; no nausea and no vomiting Genitourinary: no dysuria Musculoskeletal: no back pain Integumentary: no rash Neurologic: no localized weakness Physical Exam Physical Exam: Patient in no distress with normal affect Constitutional: WD/WN, vitals as above + obese Respiratory: normal respiratory effort, lungs clear to auscultation Cardiovascular: RRR, no murmur, no edema Results & Data ([facility]) Vital Signs (Past 12 Hours) Vital Signs Temp Pulse Resp BP Pulse Ox O2 Del Method 07/20/22 22:45 36.8 C 73 16 107/69 95 Room Air PG Care Time/CCT Total # of Minutes Spent Total Time Spent with Patient: Total time spent is greater than 50% in coordination of care (as documented) at patient's floor/unit and/or counseling patient: Coding Level of Care Code 90679 Subseq Hosp Care Lvl 3 Diagnoses Ileitis, terminal K50.00
[2022-07-21 07:46] LABS: Basophils # (auto) 0.03 K/uL (0-0.2); Basophils % (auto) 0.4 %; Eosinophils # (auto) 0.14 K/uL (0-0.50); Eosinophils % (auto) 1.8 %; Hematocrit (blood only) 35.6 % (34.1-44.9); Hemoglobin 11.7 g/dl (12.0-16.0); Immature Granulocytes # (auto) 0.03 K/uL (0.00-0.02); Immature Granulocytes % (auto) 0.4 %; Lymphocytes # (auto) 1.91 K/uL (1.2-3.4); Lymphocytes % (auto) 24.3 %; Mean Corpuscular Hemoglobin 30.1 pg (25.0-34.0); Mean Corpuscular Hgb Conc 32.9 g/dL (32.0-36.0); Mean Corpuscular Volume 91.5 fL (80.0-100.0); Mean Platelet Volume 9.9 fL (9.4-12.3); Monocytes # (auto) 0.54 K/uL (0.24-0.82); Monocytes % (auto) 6.9 %; Neutrophils # (auto) 5.21 K/uL (1.4-6.5); Neutrophils % (auto) 66.2 %; Platelet Count 424 K/uL (130-400); RDW Coefficient of Variation 13.1 % (11.5-14.5); RDW Standard Deviation 43.8 fL (36.4-46.3); Red Blood Count 3.89 M/uL (3.93-5.22); White Blood Count 7.86 K/ul (4.8-10.8)
[2022-07-21 08:15] LABS: BUN Creatinine Ratio 5.8 (10-20); Calcium 9.1 mg/dl (8.5-10.1); Creatinine Clr Calc Pharmacy 167.2 ml/min; Est GFR (African American) 133.7 ml/min; Est GFR (Non-African American) 115.4 ml/min; Potassium 3.6 mmol/L (3.5-5.1)
[2022-07-21] MEDS: SENNOSIDES 8.8 MG/5 ML UDC PO SCH ×2 (08:44→20:19)
[2022-07-21] MEDS: FAMOTIDINE 20 MG in SYRINGE 3 ML IV SCH ×2 (08:44→20:19)
[2022-07-22] MEDS: PIPERACILLIN/TAZOBACTAM 4.5 GM in DEXTROSE 5% 100 ML IV SCH ×2 (00:12→08:13)
[2022-07-22] MEDS: SENNOSIDES 8.8 MG/5 ML UDC PO SCH (08:13)
[2022-07-22] MEDS: FAMOTIDINE 20 MG in SYRINGE 3 ML IV SCH (08:13)
--- NOTE | 2022-07-22 08:31 | Surgery Progress Note ---
Date of Service July 22, 2022 Assessment & Plan (1) Ileitis, terminal: Plan: improving has completed 2 weeks of PCN based therapy, symptoms returned while on Augmentin, will initiate Cipro/Flagyl and if she tolerates this consider d/c home Admission and Anticipated Discharge Date Admission Date: July 18, 2022 Subjective tolerating low fiber, no pain Physical Exam Gastrointestinal (Abdomen): Inspection/Auscultation: abdomen not distended Percussion/Palpation: abdomen soft; abdomen nontender Results & Data ([facility]) Vital Signs (Past 12 Hours) Vital Signs Temp Pulse Resp BP BP Pulse Ox O2 Del Method 07/22/22 07:56 36.8 C 69 18 130/89 97 Room Air 07/21/22 22:27 36.7 C 66 16 102/69 96 Room Air PG Care Time/CCT Total # of Minutes Spent Total Time Spent with Patient: Total time spent is greater than 50% in coordination of care (as documented) at patient's floor/unit and/or counseling patient: Coding Level of Care Code 98629 Subseq Hosp Care Lvl 1 Diagnoses Ileitis, terminal K50.00
[2022-07-22 08:35] LABS: Hematocrit (blood only) 37.3 % (34.1-44.9); Hemoglobin 12.2 g/dl (12.0-16.0); Mean Corpuscular Hemoglobin 29.5 pg (25.0-34.0); Mean Corpuscular Hgb Conc 32.7 g/dL (32.0-36.0); Mean Corpuscular Volume 90.3 fL (80.0-100.0); Mean Platelet Volume 9.9 fL (9.4-12.3); Platelet Count 486 K/uL (130-400); RDW Coefficient of Variation 12.8 % (11.5-14.5); RDW Standard Deviation 42.5 fL (36.4-46.3); Red Blood Count 4.13 M/uL (3.93-5.22); White Blood Count 6.67 K/ul (4.8-10.8)
[2022-07-22 09:00] LABS: Basophils # (auto) 0.04 K/uL (0-0.2); Basophils % (auto) 0.6 %; Eosinophils # (auto) 0.13 K/uL (0-0.50); Eosinophils % (auto) 1.9 %; Immature Granulocytes # (auto) 0.02 K/uL (0.00-0.02); Immature Granulocytes % (auto) 0.3 %; Lymphocytes # (auto) 1.69 K/uL (1.2-3.4); Lymphocytes % (auto) 25.3 %; Monocytes # (auto) 0.44 K/uL (0.24-0.82); Monocytes % (auto) 6.6 %; Neutrophils # (auto) 4.35 K/uL (1.4-6.5); Neutrophils % (auto) 65.3 %; RBC Morphology Unremarkable
[2022-07-22 09:01] LABS: Calcium 9.3 mg/dl (8.5-10.1); Creatinine Clr Calc Pharmacy 144.9 ml/min; Est GFR (African American) 127.6 ml/min; Est GFR (Non-African American) 110.1 ml/min
[2022-07-22] MEDS: metroNIDAZOLE 500 MG TAB PO SCH ×2 (09:44→13:01)
--- NOTE | 2022-07-24 10:24 | Discharge Summary ---
Date of Service July 22, 2022 Admission HPI Per Admitting Provider This is a 46-year-old female who was recently admitted to [facility] from 07/08/2022 to 07/12/2022. Prior to that admission the patient experienced 3 to 4 days of abdominal pain with the pain being generalized to the mid abdomen with subsequent migration to the right lower quadrant. A CT scan of the abdomen pelvis at that time showed some inflammatory change centered in the right lower quadrant with mild wall thickening of the appendix, cecum, and terminal ileum the appendix was noted to be slightly thickened and slightly enlarged at 8 mm. At time of admission the patient's white blood cell count was noted to be 7.54. It had normalized by the time of discharge. The patient was admitted on the [facility] surgery service. As it was unclear if the patient had an appendicitis or combination of appendicitis with ileitis and there was no evidence of perforation it was felt the patient would likely require an ileocecectomy if operative intervention was employed. The patient was therefore treated in a conservative manner with intravenous antibiotics and was ultimately discharged home on 07/12/2022. Patient notes that she was discharged home on a 6-day course of Augmentin which she finished today. The patient notes that earlier today she developed a fever of 103 which self resolved in "a few moments". Patient notes that she specifically did not take any antipyretics to resolve her fever. She specifically denies any nausea or vomiting. She did report some lethargy and weakness. She notes that since discharge home she has been eating but noted her appetite was poor today, but she was able to eat lunch at approximate 12:00 PM at which time she had pizza. Patient notes that she has been having liquid bowel movements with her most recent bowel movement being earlier this evening. She denies any melena or hematochezia. Patient does report in addition to the above signs and symptoms that she has some right lower quadrant pain that is nonradiating. She notes t hat the pain is improved with lying still and worse with certain movements. I did question her on prior abdominal surgeries and she has had a cholecystectomy by Dr. Munoz of [facility] general surgery in March of this year. She also underwent a right oophorectomy. She is unsure if she has any family history of inflammatory bowel disease and she has never had a colonoscopy. Today in the emergency department the patient had labs and imaging which I independently reviewed. CBC revealed white blood cell count is now elevated at 22.3. Hemoglobin and hematocrit were noted to be normal. Her platelet count was 469,000. Chemistry profile showed sodium, potassium, and BUN were normal. Her creatinine was actually low at 0.49. There is no elevation of patient's LFTs. A COVID test was performed and was noted be negative. A CT scan of the abdomen pelvis was performed. There is been noted progression of the extensive right lower quadrant inflammatory process which involves the distal ileum, cecum, and appendix. The inflammation was noted to extend into the pelvis. The appendix is mildly dilated and there is a small fluid collection adjacent to the appendix. It was uncertain if this was a developing abscess. I did discuss this with radiology and they did not feel that this was drainable. No free air was noted. No extraluminal gas was noted in the bowel or small bowel. Since arrival to the emergency department the patient has received some intravenous fluids, antibiotics in the form of Zosyn, and she was noted to be afebrile, normotensive, not tachycardic, and in no distress. Principal Diagnosis Ileitis/colitis Discharge Exam Constitutional WD/WN, vitals as above Respiratory normal respiratory effort, lungs clear to auscultation Cardiovascular RRR, no murmur, no edema Gastrointestinal (Abdomen) normal bowel sounds, soft, nontender, no hepatosplenomegaly Discharge Data Allergies Allergy/AdvReac Type Severity Reaction Status Date / Time No Known Drug Allergies Allergy Unknown Verified 07/16/22 14:00 SEASONAL Allergy ITCHY, DRY Uncoded 07/16/22 14:00 & RED EYES Consultations 07/18/22 19:22 Consult General Surgery Stat Ordered Studies 07/18/22 17:57 CT abd pelvis IV con only Stat Hospital Course (1) Ileitis, terminal: 46 y/o female presented to the ER with recurrent abdominal pain and fever after recent admission. CT again showed inflammatory process of RLQ involving terminal ileum and right colon with no abscess or fluid collections. She was admitted, kept NPO and started on IV Zosyn. White count normalized after three days. She was able to tolerate an advancing diet over this time. On day 4 she was stable for discharge home on Cipro and Flagyl. Total Time Total Time Spent Total Time Spent (In Minutes): 15 Discharge Plan Discharge Items Patient Disposition: Home - Self-Care Reason For Visit: ABDOMINAL PAIN Discharge Diagnosis: ileitis Activity: Per Instructions section Lifting: Gradually increase as tolerated Bathing: No limitations Exercise/Sports: Gradually increase as tolerated Driving/Machine Use: Resume 1 day after discharge Non-emergency contact: Surgeon Call non-emergency contact if: you have any medication questions, your symptoms worsen, your pain is not controlled, you have a fever and your temperature is above 101.5 Follow-up/Referrals: Tiffany Richard CRNP [Primary Care Provider] - Da Munoz DO, FACS [Physician] - (Please call to make an appt in approx 1 week) Diet: Low Fiber Addtl Attending Provider Instructions: Pending Studies at Discharge: No Stand-Alone Forms: My [employer], Work/School Release, Smoking Cessation Medications and DC Order Prescriptions: New metronidazole 500 mg tablet 500 mg PO TID Qty: 30 0RF ciprofloxacin HCl 500 mg tablet 500 mg PO BID Qty: 20 0RF Continued loratadine 10 mg tablet 10 mg PO QAM psyllium husk 0.52 gram capsule 1.04 g PO QAM rizatriptan 10 mg tablet,disintegrating See Rx Instructions PO .COMPLEX Qty: 9 5RF Dose Instruction: take 1 tab at onset of headache; if no relief may repeat 1 tab in 2hr; max = 3 tabs/day (24hr) PO Rx Instructions: take 1 tab at onset of headache; repeat q2 hrs prn docusate sodium [Colace] PO omeprazole magnesium 20 mg tablet,delayed release (DR/EC) 20 mg PO QAM magnesium 200 mg tablet 200 mg PO QAM acetaminophen [Tylenol Extra Strength] 500 mg Tablet 1,000 mg PO Q6H PRN (Reason: Pain) Glucosamine Chondroitin 550-30-1 mg Capsule 2 cap PO DAILY Collagen Powder 1 dose PO DAILY Discontinued amoxicillin-pot clavulanate 875-125 mg tablet 1 tab PO BID Qty: 12 0RF Discharge Orders: Discharge Order (Routine); Ordered 07/22/22 Ordered By: Florencio Lorenz/Other Patient Handouts: Anatomy of the Digestive System Admission Data Admit Date/Time: 07/18/22 20:20 Attending Provider: Da Munoz Admit Provider: Da Munoz Primary Care Provider: Tiffany Richard Other Providers: Jimi Reed Other Interventions: Discharge Summary Assessment (RN) Last Done: 07/22/22 13:10 Coding Level of Care Code D/C DAY MANAGEMENT <30 MINS Diagnoses Ileitis, terminal K50.00
== END 2022-07-22 13:54 | disposition home or self-care (01) | DRG 387 ==
LOC: ED 14:51 → 3W 20:20